=== PATIENT | female | born 1955 | race Caucasian/White ===

== ENCOUNTER → 2018-01-12 16:30 | Outpatient (CLI) | payer OTHER, SELFPAY ==
[2018-01-18 13:48] LABS: HPV APTIMA, High Risk Negative (Negative)
== END ==
PROVIDERS: Family Provider Family Medicine; PCP Family Medicine; Visit Provider Nurse Practitioner Women's Health
DX: Z12.4 Encounter for screening for malignant neoplasm of cervix (principal)
CPT/HCPCS: 88175; G0145

== ENCOUNTER → 2018-05-20 07:18 | Outpatient (CLI) | payer MEDICARE, OTHER, SELFPAY ==
--- NOTE | 2018-05-20 07:32 | BI_ITS ---
MAMMOGRAPHY - BILATERAL SCREENING REASON FOR EXAM: Female, 63 years old. Routine annual screening examination. PERTINENT HISTORY: Non-contributory. TECHNIQUE: Digital bilateral breast hyuen (3D mammographic acquisition) in the CC and MLO projections. 2-D mediolateral oblique (MLO) and craniocaudad (CC) views of both breasts were obtained. CAD: Full Field Digital Mammography with Computer Added Detection was performed. COMPARISON: Comparison is made with prior examination dated August 30, 2015. FINDINGS: Breast Composition: There are scattered areas of fibroglandular density. There are no dominant masses or suspicious calcifications. No other significant abnormalities are identified. There has been no significant change since the prior study. BI/SCREENING MAMM (CAD), BILAT IMPRESSION: Stable bilateral screening mammogram. Yearly follow-up mammogram recommended. (A) ASSESSMENT CATEGORY: BIRADS Category 1: Negative. A letter regarding these results will be sent to the patient by the facility within 30 days. Approximately 10% of breast cancers are not detected by mammography. A normal mammogram should not delay biopsy of a clinically suspicious abnormality. [id number] Electronically Signed: Clarke Sim MD at 12:44 EDT Tel [phone], Service support ,
== END ==
PROVIDERS: Family Provider Family Medicine; PCP Family Medicine; Visit Provider Nurse Practitioner Women's Health
DX: Z12.31 Encounter for screening mammogram for malignant neoplasm of breast (principal)
CPT/HCPCS: 77063; 77067

== ENCOUNTER → 2019-06-30 10:26 | Outpatient (CLI) | payer MEDICARE, OTHER, SELFPAY ==
[2018-01-12 09:01] VITALS: BMI 41.4
[2019-06-30 12:58] LABS: ALB/GLOB Ratio 0.8 RATIO (0.9-2.4); AST(SGOT) 14 U/L (15-37); Alanine Aminotransfer ALT/SGPT 24 U/L (13-56); Albumin, Serum 3.5 g/dL (3.2-5.0); Alkaline Phosphatase 115 U/L (45-117); Anion Gap 7 (5-15); BUN 12 mg/dL (7-18); Calcium,Total 8.9 mg/dL (8.5-10.1); Chloride 103 mmol/L (98-107); EST Glomerular Filtration Rate 59 mL/min (>60); Est Glom Filt Rate - Afr Amer 72 mL/min (>60); Globulin 4.4 g/dL (2.2-4.2); Glucose 127 mg/dL (74-106); Potassium 3.4 mmol/L (3.5-5.1); Protein, Total 7.9 g/dL (6.4-8.2); Sodium Level 141 mmol/L (136-145); Thyroid Stim Hormone (TSH) 2.02 uIU/mL (0.358-3.74)
== END ==
PROVIDERS: Family Provider Family Medicine; PCP Family Medicine; Referring Provider Family Medicine; Visit Provider Nurse Practitioner Family
DX: I10 Essential (primary) hypertension (principal)
CPT/HCPCS: 36415; 80053; 84443

== ENCOUNTER → 2019-07-07 10:11 | Outpatient (CLI) | payer MEDICARE, OTHER, SELFPAY ==
[2018-01-12 09:01] VITALS: BMI 41.4
--- NOTE | 2019-07-07 10:15 | BI_ITS ---
MAMMOGRAPHY - BILATERAL SCREENING REASON FOR EXAM: Female, 64 years old. Routine annual screening examination. PERTINENT HISTORY: Non-contributory. TECHNIQUE: Digital bilateral breast lexa (3D mammographic acquisition) in the CC and MLO projections. 2-D mediolateral oblique (MLO) and craniocaudad (CC) views of both breasts were obtained. CAD: Full Field Digital Mammography with Computer Added Detection was performed. COMPARISON: Comparison is made with prior study dated May 20, 2018. FINDINGS: Breast Composition: There are scattered areas of fibroglandular density. There are no dominant masses or suspicious calcifications. No other significant abnormalities are identified. There has been no significant change since the prior study. BI/SCREEN MAMM (CAD) W/LEXA BILAT IMPRESSION: Stable bilateral screening mammogram. Yearly follow-up mammogram recommended. (A) ASSESSMENT CATEGORY: BIRADS Category 1: Negative. A letter regarding these results will be sent to the patient by the facility within 30 days. Approximately 10% of breast cancers are not detected by mammography. A normal mammogram should not delay biopsy of a clinically suspicious abnormality. [id number] Electronically Signed: Clarke Sim, at 12:27 EDT , Service support ,
== END ==
PROVIDERS: Family Provider Family Medicine; PCP Family Medicine; Referring Provider Nurse Practitioner Women's Health; Visit Provider Nurse Practitioner Women's Health
DX: Z12.31 Encounter for screening mammogram for malignant neoplasm of breast (principal)
CPT/HCPCS: 77063; 77067

== ENCOUNTER 2021-01-31 12:00 | Outpatient (RCR) | payer MEDICARE, SELFPAY ==
[2018-01-12 09:01] VITALS: BMI 41.4
[2021-01-31] MEDS: COVID-19 VACC, MRNA(PFIZER)/PF 30 MCG/0.3 ML SYRINGE IM (11:40)
[2021-02-21] MEDS: COVID-19 VACC, MRNA(PFIZER)/PF 30 MCG/0.3 ML SYRINGE IM (11:23)
== END 2021-04-30 23:59 ==
LOC: IMMUN 12:00
PROVIDERS: PCP Family Medicine; Visit Provider Family Medicine
DX: Z23 Encounter for immunization (principal)
CPT/HCPCS: 0001A; 0002A; 91300

== ENCOUNTER → 2021-04-03 10:19 | Outpatient (CLI) | payer MEDICARE, SELFPAY ==
[2018-01-12 09:01] VITALS: BMI 41.4
--- NOTE | 2021-04-03 10:25 | BI_ITS ---
MAMMOGRAPHY - BILATERAL SCREENING REASON FOR EXAM: Female, 65 years old. Routine annual screening examination. PERTINENT HISTORY: Non-contributory. TECHNIQUE: Digital bilateral breast lexa (3D mammographic acquisition) in the CC and MLO projections. 2-D mediolateral oblique (MLO) and craniocaudad (CC) views of both breasts were obtained. CAD: Full Field Digital Mammography with Computer Added Detection was performed. COMPARISON: Comparison is made with prior study 07/07/2019 and 05/20/2018. FINDINGS: Breast Composition: There are scattered areas of fibroglandular density. There are no dominant masses or suspicious calcifications. No other significant abnormalities are identified. There has been no significant change since the prior study. BI/SCRN MAMM (CAD)W/LEXA BILAT IMPRESSION: Stable bilateral screening mammogram. Yearly follow-up mammogram recommended. (A) ASSESSMENT CATEGORY: BIRADS Category 1: Negative. A letter regarding these results will be sent to the patient by the facility within 30 days. Approximately 10% of breast cancers are not detected by mammography. A normal mammogram should not delay biopsy of a clinically suspicious abnormality. [id number] Electronically Signed: Clarke Sim MD at 12:19 EDT , Service support ,
--- NOTE | 2021-04-03 10:31 | BD_ITS ---
STUDY: DUAL ENERGY X-RAY ABSORPTIOMETRY / DXA REASON FOR EXAM: Female, 65 years old. Z780. Patient is postmenopausal. Loss of height. TECHNIQUE: Bone Mineral Density (BMD) measurements of lumbar spine and bilateral hips were obtained. COMPARISON: None. FINDINGS: Lumbar Spine (L1-L4): g/cm2 (1.256) / T-score (0.7) / Z-score (2.4) Findings are suggestive of normal bone density with a low fracture risk. Left Femur Total: g/cm2 (1.167) / T-score (1.3) / Z-score (2.6) Left Femoral Neck: g/cm2 (1.106) / T-score (0.5) / Z-score (2.1) Right Femur Total: g/cm2 (1.166) / T-score (1.3) / Z-score (2.6) Right Femoral Neck: g/cm2 (1.087) / T-score (0.4) / Z-score (1.9) BD/Dexa Bone Density Study IMPRESSION: The patient is considered normal as outlined below according to World Ambrose Organization (WHO) criteria with a low fracture risk. Reference Information: The T-score is the number of standard deviations above or below the standard which is normal for young adults at their peak bone mineral density. The World Health Organization (WHO) interprets the T-scores as follows: Above -1 Normal bone density Between -1 and -2.5 Osteopenia Equal to / or below -2.5 Osteoporosis As a practical clinical guideline, osteopenia may be graded as follows: Mild -1 through -1.5 Moderate -1.6 through -2.0 Severe -2.1 through -2.4 The Z-score is the number of standard deviations above or below age-matched controls. A Z-score of less than -1.5 would be considered abnormal. References: 1. NIH Osteoporosis and Related Bone Diseases www osteo.org 2. International Society for Clinical Densitometry www iscd.org 3. National Osteoporosis Foundation www nof.org Electronically Signed: Clarke Sim MD at 9:29 EDT , Service support ,
== END ==
PROVIDERS: PCP Family Medicine; Referring Provider Nurse Practitioner Adult Health; Visit Provider Nurse Practitioner Adult Health
DX: Z12.31 Encounter for screening mammogram for malignant neoplasm of breast (principal); Z78.0 Asymptomatic menopausal state
CPT/HCPCS: 77063; 77067; 77080

== ENCOUNTER → 2021-08-29 10:31 | Outpatient (CLI) | payer MEDICARE, SELFPAY ==
--- NOTE | 2021-08-29 | EMB_PTH ---
PATIENT: JERRI VANEGAS LOC: [facility] U#:[id number] AGE/SX: 70/F ROOM: RE08/29/[address]: MIGUEL Araiza : 1955 BED: DIS: SPEC #: [id number] RECD: 08/29/21 11:01 STATUS: WILLA MARY #: [id number] ISSAC: 08/29/21 00:[address]: Emilia Valdes NP DEPT: SURGICAL PATHOLOGY RECD BY: Loraine Florez ENTERED: 08/29/21 13:21 SP TYPE: ENDOM BX/C CEDRIC DR: Dr. Kirit Mcintosh MD Tissues: Endometrium, NOS Procedures: Surgery Specimen Level IV HEADER OPERATION: Endometrial biopsy PRE-OP DIAGNOSIS: PMB TISSUE SUBMITTED: Endometrial biopsy MICROSCOPIC DIAGNOSIS Endometrial biopsy: Simple endometrial hyperplasia without atypia. SJ:jairo 08/30/2021 COMMENT Case has been reviewed in consultation with Dr. Leo who concurs with the above diagnosis. IDC:AM MICROSCOPIC DESCRIPTION Slides are reviewed. GROSS DESCRIPTION Received is one container labeled with the patient's name and not further designated. The specimen consists of multiple irregular fragments of benjamin soft mixed with mucoid tissue that in aggregate measure 3 x 2.5 x 0.2 cm. The specimen is totally submitted in one cassette. / SJ:jairo 08/29/21 TC:5 CPT: 33227
[2021-09-04 15:55] LABS: HPV Reflexed? NOT INDICATED
== END ==
PROVIDERS: PCP Family Medicine; Referring Provider Nurse Practitioner Women's Health; Visit Provider Nurse Practitioner Women's Health
DX: Z12.4 Encounter for screening for malignant neoplasm of cervix (principal); N95.0 Postmenopausal bleeding
CPT/HCPCS: 88175; 88305; G0145

== ENCOUNTER → 2021-09-05 07:46 | Outpatient (CLI) | payer MEDICARE, SELFPAY ==
--- NOTE | 2021-09-05 07:49 | US_ITS ---
STUDY: ULTRASOUND OF THE FEMALE PELVIS - COMPLETE REASON FOR EXAM: Female, 66 years old. Abnormal uterine bleeding LMP: Patient is postmenopausal. TECHNIQUE: Transabdominal and Transvaginal TECHNICAL QUALITY: Adequate. COMPARISON: None. FINDINGS: The uterus is anteverted and is in a midline position. The uterus is enlarged and measures 11.1 cm x 6.5 cm x 4.7 cm. There is a Nabothian cyst of the cervix. The endometrium is thickened and measures 11.5 mm in thickness, and is hyperechoic. There is no demonstrated endometrial mass. There is a 2.3 cm x 2.7 cm x 1.5 cm uterine fibroid. I.U.D. - The patient does not have an I.U.D. The right ovary is non-visualized. The left ovary is visualized. The left ovary measures 2 cm x 1.5 cm x 1.4 cm. There is no left ovarian cyst or ovarian mass. There is no visualized left adnexal mass or complex lesion. There is normal arterial and normal venous vascularity. There is no fluid in the cul-de-sac. The pre void volume of the bladder was 212 ml. US/Pelvic (Non ) IMPRESSION: Enlarged fibroid uterus. Thickened endometrium. Electronically Signed: Clarke Sim MD at 9:12 EDT , Service support ,
--- NOTE | 2021-09-05 07:49 | US_ITS ---
STUDY: ULTRASOUND OF THE FEMALE PELVIS - COMPLETE REASON FOR EXAM: Female, 66 years old. Abnormal uterine bleeding LMP: Patient is postmenopausal. TECHNIQUE: Transabdominal and Transvaginal TECHNICAL QUALITY: Adequate. COMPARISON: None. FINDINGS: The uterus is anteverted and is in a midline position. The uterus is enlarged and measures 11.1 cm x 6.5 cm x 4.7 cm. There is a Nabothian cyst of the cervix. The endometrium is thickened and measures 11.5 mm in thickness, and is hyperechoic. There is no demonstrated endometrial mass. There is a 2.3 cm x 2.7 cm x 1.5 cm uterine fibroid. I.U.D. - The patient does not have an I.U.D. The right ovary is non-visualized. The left ovary is visualized. The left ovary measures 2 cm x 1.5 cm x 1.4 cm. There is no left ovarian cyst or ovarian mass. There is no visualized left adnexal mass or complex lesion. There is normal arterial and normal venous vascularity. There is no fluid in the cul-de-sac. The pre void volume of the bladder was 212 ml. US/Transvaginal Non- IMPRESSION: Enlarged fibroid uterus. Thickened endometrium. Electronically Signed: Clarke Sim MD at 9:12 EDT , Service support ,
== END ==
PROVIDERS: PCP Family Medicine; Referring Provider Nurse Practitioner Women's Health; Visit Provider Nurse Practitioner Women's Health
DX: N95.0 Postmenopausal bleeding (principal)
CPT/HCPCS: 76830; 76856

== ENCOUNTER 2021-11-26 05:51 | Day surgery (SDC) | payer MEDICARE, SELFPAY ==
--- NOTE | 2021-11-21 10:02 | EKG12_ITS ---
Test Reason : PREOP Blood Pressure : / mmHG Vent. Rate : 075 BPM Atrial Rate : 075 BPM P-R Int : 126 ms QRS Dur : 078 ms QT Int : 384 ms P-R-T Axes : 033 000 026 degrees QTc Int : 428 ms Normal sinus rhythm Nonspecific ST abnormality Abnormal ECG Confirmed by LISETH CRESPO, VERONICA ([id number]), web content editor HERRERA PLEITEZ ([id number]) on 11/25/2021 2:19:11 PM Referred By: Danay Padron Confirmed By:VERONICA CHILDERS MD
[2021-11-21 10:45] LABS: Absolute Lymphocyte Count 1.29 X10^3/uL (0.83-4.51); Absolute Neutrophil Count 4.8 X10^3/uL (2.0-7.7); Basophil# 0.02 X10^3/uL; Basophil% 0.3 % (0-1); Eosinophil# 0.14 X10^3/uL; Eosinophils% 2.1 % (0-5); Hematocrit 41.1 % (37-47); Hemoglobin 12.7 g/dL (12.0-15.0); Lymphocyte # 1.29 X10^3/ul (0.83-4.51); Lymphocyte % 19.2 % (19-41); Mean Corp Hgb Conc 30.9 g/dL (32-36); Mean Corpuscular Hgb 25.8 pg (27.0-32.0); Mean Corpuscular Volume 83.5 fL (81-99); Mean Platelet Vol. 9.5 fl (6.2-12.0); Monocyte# 0.47 X10^3/uL; NRBC Flagged by Analyzer 0 % (0-5); Neutrophil # 4.78 X10^3/uL (2.7-7.7); Neutrophil % 71.1 % (47-70); Platelet Count 287 K/mm3 (150-450); RBC Distribution Width CV 15.2 % (11.6-14.6); RBC Distribution Width SD 46.2 fl (35.1-43.9); Red Blood Count 4.92 M/mm3 (4.2-5.4); White Blood Count 6.7 K/mm3 (4.4-11.0)
[2021-11-21 11:11] LABS: ALB/GLOB Ratio 0.7 RATIO (0.9-2.4); AST(SGOT) 20 U/L (15-37); Alanine Aminotransfer ALT/SGPT 26 U/L (13-56); Albumin, Serum 3.2 g/dL (3.2-5.0); Alkaline Phosphatase 116 U/L (45-117); Anion Gap 4 (5-15); BUN 14 mg/dL (7-18); BUN/Creat Ratio 15.5 RATIO (10-20); Calcium,Total 9.2 mg/dL (8.5-10.1); Chloride 107 mmol/L (98-107); Creatinine, Serum 0.91 mg/dL (0.55-1.02); EST Glomerular Filtration Rate 66 mL/min (>60); Est Glom Filt Rate - Afr Amer 79 mL/min (>60); Globulin 4.4 g/dL (2.2-4.2); Glucose 110 mg/dL (74-106); Potassium 4.2 mmol/L (3.5-5.1); Protein, Total 7.6 g/dL (6.4-8.2); Sodium Level 141 mmol/L (136-145)
[2021-11-26] VITALS (7 sets, daily range): BP systolic 129–159; BP diastolic 74–88; PULSE 62–87; RESP 16–20; TEMP 36.3–37.1; O2SAT 95–98; BMI 40.8
[2021-11-26] MEDS: Lactated Ringers 1,000 ML 15 ML IV (06:42)
--- NOTE | 2021-11-26 07:27 | PCM.HP.BLA ---
History and Physical Date of Admission: 11/26/21 Intake Visit Reasons: 2 wk D&C Is patient in pain?: No Allergies No Known Allergies Allergy (Verified 11/18/21 14:02) Medications multivitamin,pk-vmbe-chxuxytb 1 tab PO QDAY 01/12/18 [History Confirmed 11/18/21] quinapril 20 mg tablet 10 mg PO QDAY tab 08/29/21 [History Confirmed 11/18/21] Is last menstrual period known: No Post menopausal: Yes Patient : No : No PFSH Medical History Hypertension Surgical History bilateral carpal tunnel surgery gallbladder surgery History of bilateral knee replacement History of tonsillectomy Social History current occupational status: retired current occupation: [employer] Smoking Status: Never smoker alcohol intake: never substance use type: does not use caffeine: Yes frequency: daily duration: 30-45 minutes/day seatbelt use: always do you feel safe at home: Yes additional social history: [facility] 2 wk D&C Details: JERRI VANEGAS is a 66 year old who presents for preop apopintment for d and c hysteroscopy Female Reproductive History Menopausal Symptoms: No night sweats Pregancy History 1 Elective abortions Hx Para 1 Spontaneous abortions Hx # Term Pregnancies Ectopic pregnancies Hx # Pregnancies Multiple births # of living children Past Pregnancies Del. Date Name GA/Weeks Outcome Route Bth Weight Gen Labor Lgth Anesthesia Del [facility] Provider FOB Unknown 1980 Sonya Amaya Constitutional: Denies fatigue, night sweats, weight gain or weight loss ENT ENT: Reports system reviewed and no additional complaints, except as documented Cardio Card: Denies chest pain Resp Resp: Denies cough or dyspnea GI GI: Reports as per HPI; Denies abdominal pain, constipation, nausea or vomiting : Denies nipple discharge, urinary frequency, urinary incontinence, urinary hesitancy, urinary urgency, vaginal discharge, vaginal dryness, vaginal odor or vaginal pruritus Musc Musc: Denies arthralgias, back pain or muscle weakness Skin Skin/Breast: Denies change in hair, dry skin or nipple discharge Neuro Neuro: Reports system reviewed and no additional complaints, except as documented Psych Psych: Reports system reviewed and no additional complaints, except as documented Endo Endo: Denies cold intolerance, excessive sweating, heat intolerance or polydipsia Constantine/Lymph Hematologic/Lymphatic: Denies easy bleeding, Denies easy bruising and Denies lymphadenopathy Exam Const General: cooperative, healthy appearing, comfortable, no acute distress and well developed Orientation: alert [facility] Head: normal to inspection and normocephalic Ears: hearing grossly normal bilaterally and external ears normal Nose: external nose normal and nares normal Face and sinus: normal facial exam Neck Neck: normal visual inspection and no lymphadenopathy Thyroid: thyroid normal Chest Chest palpation & inspection: normal inspection of the chest Resp Effort & Inspection: normal respiratory effort Auscultation: clear to auscultation bilaterally Cardio Rate: regular rate Rhythm: regular rhythm Heart Sounds: S1 normal and S2 normal GI Inspection: normal to inspection and non-distended Palpation: soft and no hepatosplenomegaly Musc Other: gross motor intact no deficits, full bilateral strength Skin General: no rashes or lesions noted Neuro General: patient alert, patient awake, moves all extremities and no focal motor deficits Motor: muscle tone normal throughout Extrem General: normal to inspection and no pedal edema Psych Appearance: grossly normal Mental Status: mental status grossly normal Affect: normal affect Speech and Movement: speech and movement normal Coding Level of Care Code No Charge Diagnoses Simple endometrial hyperplasia without atypia N85.01 Postmenopausal bleeding N95.0 Assessment and Plan Assessment and Plan (1) Simple endometrial hyperplasia without atypia: Status: Acute Comment: Plan hysteroscopy D&C with symphion with SM (2) Postmenopausal bleeding: Status: Acute Comment: US small fibroid, lining 11mm Plan - Dr. Danay Padron MD: After discussing the patient's diagnosis and treatment plan options, patient wishes to proceed with surgical management. I have discussed with the patient the risks, benefits, and alternatives of the procedure which include but are not limited to risks of anesthesia, bleeding, infection, possible damage to bowel, bladder, or surrounding vasculature which could lead to additional surgery to evaluate any complications. Patient agrees to procedure and wishes to proceed. ACOG/uptodate references given for additional information regarding procedure. UPDATE- I have seen the patient and performed any clinically relevant updates to the history and physical exam. Danay Padron MD
--- NOTE | 2021-11-26 07:30 | UTC_PTH ---
PATIENT: JERRI VANEGAS LOC: [facility] U#:[id number] AGE/SX: 66/F ROOM: RE11/26/[address]: Dr. Danay Padron MD : 1955 BED: DIS: 11/26/2021 SPEC #: [id number] RECD: 11/26/21 13:45 STATUS: WILLA HERNANDEZ #: [id number] ISSAC: 11/26/21 07:[address]: Danay Padron DEPT: SURGICAL PATHOLOGY RECD BY: Loraine Florez ENTERED: 11/26/21 13:55 SP TYPE: UT CUR OTHR DR: Dr. Kirit Mcintosh MD Tissues: Uterine cervix, NOS Procedures: Surgery Specimen Level IV HEADER OPERATION: Hysteroscopy, D & C Symphion, polypectomy, IUD insertion PRE-OP DIAGNOSIS: Simple endometrial hyperplasia, postmenopausal bleeding TISSUE SUBMITTED: Uterine washings and polyp MICROSCOPIC DIAGNOSIS Uterine washings and polyp: Polypoid fragments of simple and focal complex hyperplasia without atypia. AM:jairo 11/27/2021 COMMENT Reference is made to the patient's previous endometrial biopsy ([id number]) in which simple hyperplasia without atypia was identified. MICROSCOPIC DESCRIPTION Slides are reviewed. GROSS DESCRIPTION Received in fixative is one container labeled with the patient's name and designated uterine washings and polyp. The specimen consists of multiple irregular fragments of pink-benjamin soft tissue that in aggregate measure 7 x 5 x 0.2 cm. The specimen is submitted in its entirety in three cassettes. / AM:jairo 11/26/21 TC:5 CPT: 91938
[2021-11-26] MEDS: Levonorgestrel IUD (Liletta) 1 EACH INTRA-UTER (07:45)
--- NOTE | 2021-11-26 07:58 | PCM.OPRPT ---
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 A weighted speculum was placed in the vagina and the anterior lip of the cervix was grasped with a single-tooth tenaculum. A paracervical block was placed with 1% lidocaine. Cervix was progressively dilated to allow passage of a 5 mm hysteroscope. The lining was fully visualized and noted to have a thickened polypoid lining with at least 2 endometrial polyps present. Uterine sounded to 10 cm. Using the symphion device, the polyps were progressively removed without complications. Direct visual curettage was performed using the device , and all specimens were sent to pathology. Liletta IUD was placed without complication and strings trimmed to 3 cm. All instruments were removed from the vagina and excellent hemostasis was noted. Patient was awoken and taken to recovery in stable condition. Grafts/Implants Used: none Complications none Admit VTE Documentation VTE Present on Admission: No VTE Mechan Device Prophylaxis: SCD's Multi Select Codes Urinary/Genital Urinary/Genital CPT Codes: 60985 Insert IUD and 00663 Hysteroscopy,EMC, Polypectomy
--- NOTE | 2021-11-26 08:02 | PCM.DC ---
Discharge Instructions Diet Discharge Diet: No restrictions Activity Discharge Activity: Return to Normal Activity, May Shower and May Take a Tub Bath (after 1 week) May resume sexual activity in: 1-2 weeks Weight Bearing Status: Weight bearing as tolerated Lifting Restrictions: none Dressing / Incision Call your doctor if you observe: Fever of 101 or Higher, Using more than 1 pad per hour, Shortness of breath and Uncontrolled pain Follow Up Care Please Follow Up With: Danay Padron MD When: Call [phone] to schedule appointment. Test Results: Test results from this visit will be discussed in further detail at your follow-up appointment, if applicable. Discharge Plan Admission Primary Reason for Your Visit: d and c hysteroscopy iud insertion Attending Provider: Danay Padron Primary Care Provider: Kirit Mcintosh Discharge Orders/Prescriptions Prescriptions: No Action multivitamin,ph-ptcd-bzebyhui tablet tablet 1 tab PO QDAY RF: 0 quinapril 20 mg tablet 10 mg PO QDAY RF: 0 Referrals / Follow Up: Kirit Mcintosh MD [Primary Care Provider] - Disposition Disposition (needs filled in before D/C Order can be placed): Home, Self Care
[2021-11-26] MEDS: Ketorolac 15 MG/ML Vial IV (08:34)
== END 2021-11-26 23:59 | disposition home or self-care (01) ==
LOC: SDC 05:52 → AC 05:53
PROVIDERS: PCP Family Medicine; Referring Provider Obstetrics & Gynecology; Visit Provider Obstetrics & Gynecology
PROC: 0UB98ZZ Excision of Uterus, Via Natural or Artificial Opening Endoscopic (ICD-10-PCS; CPT 58558; principal; 2021-11-26 07:15)
DX: N85.01 Benign endometrial hyperplasia (principal); I10 Essential (primary) hypertension; N95.0 Postmenopausal bleeding; Z79.899 Other long term (current) drug therapy; M19.90 Unspecified osteoarthritis, unspecified site; Z30.430 Encounter for insertion of intrauterine contraceptive device
CPT/HCPCS: 58558; 58300; 00940; 36415; 80053; 85025; 86850; 86900; 86901; 88305; 93005; J7120

== ENCOUNTER 2022-01-14 08:39 | Outpatient (CLI) | payer MEDICARE, SELFPAY ==
[2022-01-14 10:08] LABS: Anion Gap 6 (5-15); BUN 11 mg/dL (7-18); BUN/Creat Ratio 11.8 RATIO (10-20); Calcium,Total 8.8 mg/dL (8.5-10.1); Chloride 105 mmol/L (98-107); Cholesterol 144 mg/dL (200); Creatinine, Serum 0.94 mg/dL (0.55-1.02); EST Glomerular Filtration Rate 63 mL/min (>60); Est Glom Filt Rate - Afr Amer 76 mL/min (>60); Glucose 110 mg/dL (74-106); High Density Lipoprotein 39 mg/dL; Sodium Level 138 mmol/L (136-145); Triglycerides 156 mg/dL; Very Low Density Lipoprotein 31 mg/dL (5-40)
== END 2022-01-14 23:59 | disposition home or self-care (01) ==
LOC: MFPLAB 08:41
PROVIDERS: PCP Family Medicine; Referring Provider Family Medicine; Visit Provider Nurse Practitioner Family
DX: Z13.220 Encounter for screening for lipoid disorders (principal); Z13.1 Encounter for screening for diabetes mellitus
CPT/HCPCS: 36415; 80048; 80061

== ENCOUNTER → 2022-03-27 | Outpatient (CLI) | payer MEDICARE, SELFPAY ==
[2022-03-27 11:12] LABS: Hemoglobin A1c 5.9 % (3.8-5.6)
== END | disposition home or self-care (01) ==
PROVIDERS: PCP Family Medicine; Referring Provider Family Medicine; Visit Provider Nurse Practitioner Family
DX: R73.01 Impaired fasting glucose (principal)
CPT/HCPCS: 36415; 83036

== ENCOUNTER → 2022-05-29 | Outpatient (CLI) | payer MEDICARE, SELFPAY ==
--- NOTE | 2022-05-29 11:40 | EMB_PTH ---
PATIENT: JERRI VANEGAS LOC: [facility] U#:[id number] AGE/SX: 67/F ROOM: RE05/29/[address]: Dr. Danay Padron MD : 1955 BED: DIS: 05/29/2022 SPEC #: [id number] RECD: 05/29/22 14:55 STATUS: WILLA REDemond #: [id number] ISSAC: 05/29/22 11:[address]: Danay Padron DEPT: SURGICAL PATHOLOGY RECD BY: Loraine Florez ENTERED: 05/30/22 08:36 SP TYPE: ENDOM BX/C OTHR DR: Dr. Kirit Mcintosh MD Tissues: Endometrium, NOS Procedures: Surgery Specimen Level IV HEADER OPERATION: Endometrial biopsy PRE-OP DIAGNOSIS: Abnormal uterine bleeding TISSUE SUBMITTED: Endometrial biopsy MICROSCOPIC DIAGNOSIS Endometrial biopsy: Fragments of benign endometrial tissue with extensive exogenous hormone effects and mucous. See comment. HALLIE:jairo 06/02/2022 COMMENT Please make reference to previous specimens ([id number]), uterine washing and polyp with diagnosis of ?polypoid fragments of simple and focal hyperplasia without atypia and ([id number]), endometrial biopsy with diagnosis of? simple endometrial hyperplasia without atypia?. Clinical correlation and appropriate follow up are necessary. MICROSCOPIC DESCRIPTION Slides are reviewed. GROSS DESCRIPTION Received is one container labeled with the patient's name and not further designated. The specimen consists of multiple fragments of benjamin, hemorrhagic mucoid tissue measuring in aggregate 2 x 1.5 x 0.1 cm. The entire specimen is submitted in one cassette. / SJ:jairo 05/30/2022 TC:5 CPT: 92885
== END | disposition home or self-care (01) ==
LOC: LABSPEC 15:05
PROVIDERS: PCP Family Medicine; Visit Provider Obstetrics & Gynecology
DX: N93.9 Abnormal uterine and vaginal bleeding, unspecified (principal)
CPT/HCPCS: 88305

== ENCOUNTER → 2022-06-12 | Outpatient (CLI) | payer MEDICARE, SELFPAY ==
--- NOTE | 2022-06-12 09:10 | BI_ITS ---
MAMMOGRAPHY - BILATERAL SCREENING REASON FOR EXAM: Female, 67 years old. Routine annual screening examination. PERTINENT HISTORY: Non-contributory. TECHNIQUE: Digital bilateral breast lexa (3D mammographic acquisition) in the CC and MLO projections. 2-D mediolateral oblique (MLO) and craniocaudad (CC) views of both breasts were obtained. CAD: Full Field Digital Mammography with Computer Added Detection was performed. COMPARISON: Comparison is made with prior study dated 04/03/2021 and 07/07/2019. FINDINGS: Breast Composition: There are scattered areas of fibroglandular density. There are no dominant masses or suspicious calcifications. No other significant abnormalities are identified. There has been no significant change since the prior study. BI/SCRN MAMM (CAD)W/LEXA BILAT IMPRESSION: Stable bilateral screening mammogram. Yearly follow-up mammogram recommended. (A) ASSESSMENT CATEGORY: BIRADS Category 1: Negative. A letter regarding these results will be sent to the patient by the facility within 30 days. Approximately 10% of breast cancers are not detected by mammography. A normal mammogram should not delay biopsy of a clinically suspicious abnormality. [id number] Electronically Signed: Clarke Sim MD at 10:02 EDT ,
== END | disposition home or self-care (01) ==
LOC: OPBI 09:08
PROVIDERS: PCP Family Medicine; Visit Provider Nurse Practitioner Family
DX: Z12.31 Encounter for screening mammogram for malignant neoplasm of breast (principal)
CPT/HCPCS: 77063; 77067

== ENCOUNTER → 2022-06-18 | Outpatient (CLI) | payer MEDICARE, SELFPAY | END | disposition home or self-care (01) | LOC: LABSPEC 13:59 | PROVIDERS: PCP Family Medicine; Referring Provider Family Medicine; Visit Provider Family Medicine | DX: R10.9 Unspecified abdominal pain (principal) | CPT/HCPCS: 87086; 87088 ==

== ENCOUNTER → 2022-07-14 | Outpatient (CLI) | payer MEDICARE, SELFPAY ==
[2022-07-14 12:32] LABS: Absolute Lymphocyte Count 1.58 X10^3/uL (0.83-4.51); Absolute Neutrophil Count 4.8 X10^3/uL (2.0-7.7); Basophil# 0.03 X10^3/uL; Basophil% 0.4 % (0-1); Eosinophil# 0.11 X10^3/uL; Eosinophils% 1.6 % (0-5); Hematocrit 41.8 % (37-47); Hemoglobin 13.1 g/dL (12.0-15.0); Lymphocyte # 1.58 X10^3/ul (0.83-4.51); Lymphocyte % 22.4 % (19-41); Mean Corp Hgb Conc 31.3 g/dL (32-36); Mean Corpuscular Hgb 25.2 pg (27.0-32.0); Mean Corpuscular Volume 80.4 fL (81-99); Mean Platelet Vol. 10.2 fl (6.2-12.0); Monocyte# 0.47 X10^3/uL; Monocyte% 6.7 % (0-10); NRBC Flagged by Analyzer 0 % (0-5); Neutrophil # 4.83 X10^3/uL (2.7-7.7); Neutrophil % 68.6 % (47-70); Platelet Count 301 K/mm3 (150-450); RBC Distribution Width CV 16.2 % (11.6-14.6); RBC Distribution Width SD 46.8 fl (35.1-43.9)
[2022-07-14 12:55] LABS: Hemoglobin A1c 6.1 % (3.8-5.6)
[2022-07-14 13:04] LABS: ALB/GLOB Ratio 0.8 RATIO (0.9-2.4); AST(SGOT) 16 U/L (15-37); Alanine Aminotransfer ALT/SGPT 19 U/L (13-56); Albumin, Serum 3.6 g/dL (3.2-5.0); Alkaline Phosphatase 122 U/L (45-117); Anion Gap 5 (5-15); BUN 16 mg/dL (7-18); BUN/Creat Ratio 11.5 RATIO (10-20); Calcium,Total 9.2 mg/dL (8.5-10.1); Chloride 105 mmol/L (98-107); Creatinine, Serum 1.39 mg/dL (0.55-1.02); EST Glomerular Filtration Rate 40 mL/min (>60); Est Glom Filt Rate - Afr Amer 48 mL/min (>60); Globulin 4.3 g/dL (2.2-4.2); Glucose 90 mg/dL (74-106); Potassium 4.1 mmol/L (3.5-5.1); Protein, Total 7.9 g/dL (6.4-8.2); Sodium Level 138 mmol/L (136-145); Thyroid Stim Hormone (TSH) 2.24 uIU/mL (0.358-3.74)
[2022-07-14 13:16] LABS: Microalbumin,Random Urine 10.1 mg/L (NO RANGE EST.); Microalbumin:Creatinine Ratio 24.2 mg/g CRE (<30 mg/g CRE)
[2022-07-14 13:42] LABS: Vitamin D,25 Hydroxy 24.1 ng/mL
== END | disposition home or self-care (01) ==
LOC: MFPLAB 10:32
PROVIDERS: PCP Family Medicine; Visit Provider Family Medicine
DX: N18.2 Chronic kidney disease, stage 2 (mild) (principal); E66.01 Morbid (severe) obesity due to excess calories; I12.9 Hypertensive chronic kidney disease with stage 1 through stage 4 chronic kidney disease, or unspecified chronic kidney disease; R73.01 Impaired fasting glucose; Z68.37 Body mass index [BMI] 37.0-37.9, adult
CPT/HCPCS: 36415; 80053; 82043; 82306; 82570; 83036; 84443; 85025

== ENCOUNTER → 2022-11-27 | Outpatient (CLI) | payer MEDICARE, SELFPAY ==
--- NOTE | 2022-11-27 | EMB_PTH ---
PATIENT: JERRI VANEGAS [facility] U#:[id number] AGE/SX: 67/F ROOM: RE11/27/[address]: Dr. Danay Padron MD : 1955 BED: DIS: 11/27/2022 SPEC #: [id number] RECD: 11/28/22 10:38 STATUS: WILLA REDemond #: [id number] ISSAC: 11/27/22 00:[address]: Danay Padron DEPT: SURGICAL PATHOLOGY RECD BY: Justice Mariscal ENTERED: 11/28/22 10:38 SP TYPE: ENDOM BX/C OTHR DR: Dr. Kirit Mcintosh MD Tissues: Endometrium, NOS Procedures: Surgery Specimen Level IV HEADER OPERATION: Endometrial biopsy PRE-OP DIAGNOSIS: Not noted TISSUE SUBMITTED: Endometrial biopsy MICROSCOPIC DIAGNOSIS Endometrial biopsy: Scant fragment of benign endometrial tissue with exogenous hormone effect. Negative for hyperplasia. See comment. SJ:jairo 12/01/2022 COMMENT The specimen predominantly consists of mucoid tissue. Clinical correlation and appropriate follow up are necessary. Please make reference to previous specimens ([id number]) endometrial biopsy with diagnosis of ?simple endometrial hyperplasia without atypia? and (S2238) uterine washings and polyp with diagnosis of ?polypoid fragments of simple and complex hyperplasia without atypia? and ([id number]) endometrial biopsy with diagnosis of ?fragments of benign endometrial tissue with extensive exogenous hormone effect and mucous.? MICROSCOPIC DESCRIPTION Slides are reviewed. GROSS DESCRIPTION Received is one container labeled with the patient's name and not further designated. The specimen consists of multiple irregular fragments of benjamin mucoid tissue that in aggregate measure 2 x 2 x 0.3 cm. The specimen is totally submitted in one cassette. / HALLIE:jairo 11/28/2022 TC:5 CPT: 68002
== END | disposition home or self-care (01) ==
LOC: LABSPEC 15:03
PROVIDERS: PCP Family Medicine; Referring Provider Obstetrics & Gynecology; Visit Provider Obstetrics & Gynecology
DX: N85.00 Endometrial hyperplasia, unspecified (principal)
CPT/HCPCS: 88305

== ENCOUNTER → 2023-04-03 | Outpatient (CLI) | payer MEDICARE, SELFPAY ==
[2023-04-03 10:09] LABS: Absolute Lymphocyte Count 1.56 X10^3/uL (0.83-4.51); Absolute Neutrophil Count 3.7 X10^3/uL (2.0-7.7); Basophil# 0.02 X10^3/uL; Basophil% 0.3 % (0-1); Eosinophil# 0.14 X10^3/uL; Eosinophils% 2.4 % (0-5); Hematocrit 41.8 % (37-47); Hemoglobin 12.8 g/dL (12.0-15.0); Lymphocyte # 1.56 X10^3/ul (0.83-4.51); Lymphocyte % 26.8 % (19-41); Mean Corp Hgb Conc 30.6 g/dL (32-36); Mean Corpuscular Hgb 25.8 pg (27.0-32.0); Mean Corpuscular Volume 84.1 fL (81-99); Mean Platelet Vol. 9.8 fl (6.2-12.0); Monocyte# 0.37 X10^3/uL; Monocyte% 6.4 % (0-10); NRBC Flagged by Analyzer 0 % (0-5); Neutrophil # 3.71 X10^3/uL (2.7-7.7); Neutrophil % 63.8 % (47-70); Platelet Count 294 K/mm3 (150-450); RBC Distribution Width CV 15.6 % (11.6-14.6); RBC Distribution Width SD 47.6 fl (35.1-43.9); Red Blood Count 4.97 M/mm3 (4.2-5.4); White Blood Count 5.8 K/mm3 (4.4-11.0)
[2023-04-03 10:26] LABS: ALB/GLOB Ratio 0.8 RATIO (0.9-2.4); AST(SGOT) 17 U/L (15-37); Alanine Aminotransfer ALT/SGPT 22 U/L (13-56); Albumin, Serum 3.3 g/dL (3.2-5.0); Alkaline Phosphatase 111 U/L (45-117); Anion Gap 4 (5-15); BUN 16 mg/dL (7-18); BUN/Creat Ratio 17.3 RATIO (10-20); Chloride 109 mmol/L (98-107); Cholesterol 168 mg/dL (200); Creatinine, Serum 0.93 mg/dL (0.55-1.02); EST Glomerular Filtration Rate 64 mL/min (>60); Est Glom Filt Rate - Afr Amer 77 mL/min (>60); Glucose 95 mg/dL (74-106); High Density Lipoprotein 53 mg/dL; Potassium 3.9 mmol/L (3.5-5.1); Protein, Total 7.3 g/dL (6.4-8.2); Sodium Level 140 mmol/L (136-145); Triglycerides 130 mg/dL; Very Low Density Lipoprotein 26 mg/dL (5-40)
[2023-04-03 10:39] LABS: Vitamin D,25 Hydroxy 39.4 ng/mL
[2023-04-03 10:43] LABS: Hemoglobin A1c 6.1 % (3.8-5.6)
[2023-04-03 10:46] LABS: Microalbumin,Random Urine 34.8 mg/L (NO RANGE EST.); Microalbumin:Creatinine Ratio 27.6 mg/g CRE (<30 mg/g CRE)
== END | disposition home or self-care (01) ==
LOC: MFPLAB 08:44
PROVIDERS: PCP Family Medicine; Visit Provider Family Medicine
DX: Z00.00 Encounter for general adult medical examination without abnormal findings (principal); E66.01 Morbid (severe) obesity due to excess calories; I12.9 Hypertensive chronic kidney disease with stage 1 through stage 4 chronic kidney disease, or unspecified chronic kidney disease; R73.01 Impaired fasting glucose; N18.2 Chronic kidney disease, stage 2 (mild); Z68.37 Body mass index [BMI] 37.0-37.9, adult
CPT/HCPCS: 36415; 80053; 80061; 82043; 82306; 82570; 83036; 85025

== ENCOUNTER → 2023-07-20 | Outpatient (CLI) | payer MEDICARE, SELFPAY ==
--- NOTE | 2023-07-20 08:26 | BI_ITS ---
MAMMOGRAPHY - BILATERAL SCREENING REASON FOR EXAM: Female, 68 years old. Routine annual screening examination. PERTINENT HISTORY: Non-contributory. TECHNIQUE: Digital bilateral breast lexa (3D mammographic acquisition) in the CC and MLO projections. 2-D mediolateral oblique (MLO) and craniocaudad (CC) views of both breasts were obtained. CAD: Full Field Digital Mammography with Computer Added Detection was performed. COMPARISON: Comparison is made with prior study dated June 12, 2022 and April 03, 2021. FINDINGS: Breast Composition: There are scattered areas of fibroglandular density. There are no dominant masses or suspicious calcifications. No other significant abnormalities are identified. There has been no significant change since the prior study. BI/SCRN MAMM (CAD)W/LEXA BILAT IMPRESSION: Stable bilateral screening mammogram. Yearly follow-up mammogram recommended. (A) ASSESSMENT CATEGORY: BIRADS Category 1: Negative. A letter regarding these results will be sent to the patient by the facility within 30 days. Approximately 10% of breast cancers are not detected by mammography. A normal mammogram should not delay biopsy of a clinically suspicious abnormality. [id number] Electronically Signed: Clarke Sim MD at 12:49 EDT ,
== END | disposition home or self-care (01) ==
LOC: OPBI 08:25
PROVIDERS: PCP Family Medicine; Referring Provider Obstetrics & Gynecology; Visit Provider Obstetrics & Gynecology
DX: Z12.31 Encounter for screening mammogram for malignant neoplasm of breast (principal)
CPT/HCPCS: 77063; 77067

== ENCOUNTER 2023-09-23 08:15 | Outpatient (CLI) | payer MEDICARE, SELFPAY ==
[2023-09-23 10:40] LABS: Absolute Lymphocyte Count 1.29 X10^3/uL (0.83-4.51); Absolute Neutrophil Count 4.2 X10^3/uL (2.0-7.7); Basophil# 0.04 X10^3/uL; Basophil% 0.7 % (0-1); Eosinophil# 0.15 X10^3/uL; Eosinophils% 2.5 % (0-5); Hematocrit 41.5 % (37-47); Hemoglobin 12.8 g/dL (12.0-15.0); Lymphocyte # 1.29 X10^3/ul (0.83-4.51); Lymphocyte % 21.3 % (19-41); Mean Corp Hgb Conc 30.8 g/dL (32-36); Mean Corpuscular Hgb 26.1 pg (27.0-32.0); Mean Corpuscular Volume 84.5 fL (81-99); Mean Platelet Vol. 9.9 fl (6.2-12.0); Monocyte# 0.39 X10^3/uL; Monocyte% 6.4 % (0-10); NRBC Flagged by Analyzer 0 % (0-5); Neutrophil # 4.16 X10^3/uL (2.7-7.7); Neutrophil % 68.8 % (47-70); Platelet Count 312 K/mm3 (150-450); RBC Distribution Width CV 15.4 % (11.6-14.6); RBC Distribution Width SD 47.5 fl (35.1-43.9); Red Blood Count 4.91 M/mm3 (4.2-5.4); White Blood Count 6.1 K/mm3 (4.4-11.0)
[2023-09-23 11:19] LABS: ALB/GLOB Ratio 0.8 RATIO (0.9-2.4); AST(SGOT) 15 U/L (15-37); Alanine Aminotransfer ALT/SGPT 20 U/L (13-56); Albumin, Serum 3.4 g/dL (3.2-5.0); Alkaline Phosphatase 110 U/L (45-117); Anion Gap 4 (5-15); BUN 11 mg/dL (7-18); BUN/Creat Ratio 11.4 RATIO (10-20); Calcium,Total 9.1 mg/dL (8.5-10.1); Chloride 106 mmol/L (98-107); Creatinine, Serum 0.97 mg/dL (0.55-1.02); EST Glomerular Filtration Rate 61 mL/min (>60); Est Glom Filt Rate - Afr Amer 73 mL/min (>60); Glucose 107 mg/dL (74-106); Protein, Total 7.4 g/dL (6.4-8.2); Sodium Level 140 mmol/L (136-145)
[2023-09-23 11:51] LABS: Hemoglobin A1c 5.8 % (3.8-5.6)
== END 2023-09-23 23:59 | disposition home or self-care (01) ==
LOC: MFPLAB 08:17
PROVIDERS: PCP Family Medicine; Visit Provider Family Medicine
DX: I10 Essential (primary) hypertension (principal); E66.01 Morbid (severe) obesity due to excess calories; Z68.37 Body mass index [BMI] 37.0-37.9, adult; R73.01 Impaired fasting glucose
CPT/HCPCS: 36415; 80053; 83036; 85025

== ENCOUNTER → 2024-03-22 | Outpatient (CLI) | payer MEDICARE, SELFPAY ==
[2024-03-22 09:57] LABS: Absolute Lymphocyte Count 1.54 X10^3/uL (0.83-4.51); Absolute Neutrophil Count 3.9 X10^3/uL (2.0-7.7); Basophil# 0.04 X10^3/uL; Basophil% 0.7 % (0-1); Eosinophil# 0.16 X10^3/uL; Eosinophils% 2.6 % (0-5); Hematocrit 40.5 % (37-47); Hemoglobin 12.6 g/dL (12.0-15.0); Lymphocyte # 1.54 X10^3/ul (0.83-4.51); Lymphocyte % 25.2 % (19-41); Mean Corp Hgb Conc 31.1 g/dL (32-36); Mean Corpuscular Hgb 25.9 pg (27.0-32.0); Mean Corpuscular Volume 83.2 fL (81-99); Monocyte% 6.5 % (0-10); NRBC Flagged by Analyzer 0 % (0-5); Neutrophil # 3.94 X10^3/uL (2.7-7.7); Neutrophil % 64.5 % (47-70); Platelet Count 286 K/mm3 (150-450); RBC Distribution Width CV 15.4 % (11.6-14.6); RBC Distribution Width SD 46.7 fl (35.1-43.9); Red Blood Count 4.87 M/mm3 (4.2-5.4); White Blood Count 6.1 K/mm3 (4.4-11.0)
[2024-03-22 10:39] LABS: Microalbumin,Random Urine 20.3 mg/L (NO RANGE EST.); Microalbumin:Creatinine Ratio 14.9 mg/g CRE (<30 mg/g CRE)
[2024-03-22 10:47] LABS: ALB/GLOB Ratio 0.8 RATIO (0.9-2.4); AST(SGOT) 16 U/L (15-37); Alanine Aminotransfer ALT/SGPT 20 U/L (13-56); Albumin, Serum 3.3 g/dL (3.2-5.0); Alkaline Phosphatase 106 U/L (45-117); Anion Gap 3 (5-15); BUN 14 mg/dL (7-18); BUN/Creat Ratio 15.5 RATIO (10-20); Calcium,Total 8.9 mg/dL (8.5-10.1); Chloride 110 mmol/L (98-107); Cholesterol 162 mg/dL (200); EST Glomerular Filtration Rate 65 mL/min (>60); Est Glom Filt Rate - Afr Amer 79 mL/min (>60); Globulin 4.3 g/dL (2.2-4.2); Glucose 98 mg/dL (74-106); High Density Lipoprotein 53 mg/dL; Protein, Total 7.6 g/dL (6.4-8.2); Sodium Level 142 mmol/L (136-145); Thyroid Stim Hormone (TSH) 2.63 uIU/mL (0.358-3.74); Triglycerides 117 mg/dL; Very Low Density Lipoprotein 23 mg/dL (5-40)
== END | disposition home or self-care (01) ==
LOC: MFPLAB 09:12
PROVIDERS: PCP Family Medicine; Visit Provider Family Medicine
DX: N18.2 Chronic kidney disease, stage 2 (mild) (principal); E66.01 Morbid (severe) obesity due to excess calories; I12.9 Hypertensive chronic kidney disease with stage 1 through stage 4 chronic kidney disease, or unspecified chronic kidney disease; R73.03 Prediabetes
CPT/HCPCS: 36415; 80053; 80061; 82043; 82570; 83036; 84443; 85025

== ENCOUNTER → 2024-08-18 | Outpatient (CLI) | payer MEDICARE, SELFPAY ==
--- NOTE | 2024-08-18 07:48 | BI_ITS ---
MAMMOGRAPHY - BILATERAL SCREENING REASON FOR EXAM: Female, 69 years old. Routine annual screening examination. PERTINENT HISTORY: Non-contributory. TECHNIQUE: Digital bilateral breast lexa (3D mammographic acquisition) in the CC and MLO projections. 2-D mediolateral oblique (MLO) and craniocaudad (CC) views of both breasts were obtained. CAD: Full Field Digital Mammography with Computer Added Detection was performed. COMPARISON: Comparison is made with prior study dated July 20, 2023 and June 12, 2022. FINDINGS: Breast Composition: There are scattered areas of fibroglandular density. There are no dominant masses or suspicious calcifications. No other significant abnormalities are identified. There has been no significant change since the prior study. BI/SCRN MAMM (CAD)W/LEXA BILAT IMPRESSION: Stable bilateral screening mammogram. Yearly follow-up mammogram recommended. (A) ASSESSMENT CATEGORY: BIRADS Category 1: Negative. A letter regarding these results will be sent to the patient by the facility within 30 days. Approximately 10% of breast cancers are not detected by mammography. A normal mammogram should not delay biopsy of a clinically suspicious abnormality. [id number] Electronically Signed: Clarke Sim MD at 9:15 EDT ,
--- NOTE | 2024-08-18 08:06 | BD_ITS ---
STUDY: DUAL ENERGY X-RAY ABSORPTIOMETRY / DXA REASON FOR EXAM: Female, 69 years old. Postmenopausal TECHNIQUE: Bone Mineral Density (BMD) measurements of lumbar spine and bilateral hips were obtained. COMPARISON: Comparison is made with prior study April 03, 2021. FINDINGS: Lumbar Spine (L1-L4): g/cm2 (1.168) / T-score (1.4) / Z-score (3.5) Findings are suggestive of normal bone density with a low fracture risk. Left Femur Total: g/cm2 (1.066) / T-score (1.0) / Z-score (2.6) Left Femoral Neck: g/cm2 (0.888) / T-score (0.4) / Z-score (2.) Right Femur Total: g/cm2 (0.977) / T-score (0.3) / Z-score (1.9) Right Femoral Neck: g/cm2 (0.875) / T-score (0.2) / Z-score (2.1) The T-Scores on the most recent prior examination were: Lumbar Spine (L1-L4): There has been improvement of bone density since the previous examination. Left Femur Total: which represents a worsening of . Right Femur Total: which represents a worsening of 10.8%. BD/Dexa Bone Density Study IMPRESSION: The patient is considered normal as outlined below according to World Ambrose Organization (WHO) criteria with a low fracture risk. There has been worsening of bone density since the previous examination. Reference Information: The T-score is the number of standard deviations above or below the standard which is normal for young adults at their peak bone mineral density. The World Health Organization (WHO) interprets the T-scores as follows: Above -1 Normal bone density Between -1 and -2.5 Osteopenia Equal to / or below -2.5 Osteoporosis As a practical clinical guideline, osteopenia may be graded as follows: Mild -1 through -1.5 Moderate -1.6 through -2.0 Severe -2.1 through -2.4 The Z-score is the number of standard deviations above or below age-matched controls. A Z-score of less than -1.5 would be considered abnormal. References: 1. NIH Osteoporosis and Related Bone Diseases www osteo.org 2. International Society for Clinical Densitometry www iscd.org 3. National Osteoporosis Foundation www nof.org Electronically Signed: Clarke Sim MD at 12:28 EDT ,
== END | disposition home or self-care (01) ==
LOC: OPBI 07:47
PROVIDERS: PCP Family Medicine; Referring Provider Obstetrics & Gynecology; Visit Provider Obstetrics & Gynecology
DX: Z12.31 Encounter for screening mammogram for malignant neoplasm of breast (principal); Z78.0 Asymptomatic menopausal state
CPT/HCPCS: 77063; 77067; 77080

== ENCOUNTER → 2024-09-29 | Outpatient (CLI) | payer MEDICARE, SELFPAY ==
[2024-09-29 12:17] LABS: ALB/GLOB Ratio 0.8 RATIO (0.9-2.4); AST(SGOT) 16 U/L (15-37); Alanine Aminotransfer ALT/SGPT 16 U/L (13-56); Albumin, Serum 3.3 g/dL (3.2-5.0); Alkaline Phosphatase 110 U/L (45-117); Anion Gap 1 (5-15); BUN 11 mg/dL (7-18); BUN/Creat Ratio 11.7 RATIO (10-20); Chloride 110 mmol/L (98-107); Creatinine, Serum 0.94 mg/dL (0.55-1.02); EST Glomerular Filtration Rate 62 mL/min (>60); Est Glom Filt Rate - Afr Amer 75 mL/min (>60); Globulin 4.2 g/dL (2.2-4.2); Glucose 93 mg/dL (74-106); Potassium 4.2 mmol/L (3.5-5.1); Protein, Total 7.5 g/dL (6.4-8.2); Sodium Level 140 mmol/L (136-145)
== END | disposition home or self-care (01) ==
LOC: MFPLAB 09:12
PROVIDERS: PCP Family Medicine; Visit Provider Family Medicine
DX: R73.03 Prediabetes (principal)
CPT/HCPCS: 36415; 80053

== ENCOUNTER → 2025-01-31 | Outpatient (CLI) | payer MEDICARE, SELFPAY ==
--- NOTE | 2025-01-31 12:55 | RAD_ITS ---
PROCEDURE: SINUSES MIN 3 VIEWS REASON FOR EXAM: FLU-LIKE SYMPTOMS TECHNIQUE: 3 view(s) of the nasal bones. COMPARISON: None. FINDINGS: No visible nasal bone fracture or displacement. Visualized paranasal sinuses appear clear. RAD/Sinuses min 3 Views IMPRESSION: NO DISPLACED OR DEPRESSED NASAL BONE FRACTURE DEMONSTRATED. Reading [facility]
== END | disposition home or self-care (01) ==
LOC: MTLAB 12:47 → MTRAD 12:50
PROVIDERS: PCP Family Medicine; Referring Provider Family Medicine; Visit Provider Family Medicine
DX: R68.89 Other general symptoms and signs (principal)
CPT/HCPCS: 70220

== ENCOUNTER → 2025-03-22 | Outpatient (CLI) | payer MEDICARE, SELFPAY ==
--- NOTE | 2025-03-22 07:42 | CT_ITS ---
PROCEDURE: SINUS/FACIAL BONE (CTSI), 03/22/2025 REASON FOR EXAM: SINISITIS TECHNIQUE: CT sinuses was performed without IV contrast. Multiplanar reformats were generated. RADIATION DOSE SUMMARY: CTDlvol: 33.06 mGy DLP: 784.26 mGycm One or more dose reduction techniques were used (e.g., Automated exposure control, adjustment of the mA and/or kV according to patient size, use of iterative reconstruction technique). COMPARISON: None FINDINGS: Operative changes: None. Paranasal sinuses: Trace mucosal thickening of 1 mm or less along the inferior LEFT maxillary sinus. Focal mild mucosal thickening along the posterosuperior LEFT maxillary sinus, up to roughly 5 mm. Trace mucosal thickening of roughly 1 mm along the anterior [id number]-RIGHT sphenoid sinuses. Trace mucosal thickening of 1 mm along the LEFT frontal recess.. Outflow tracts: Patent. Anatomic variants: Bilateral maxillary accessory ostia. Rightward nasal septal deviation of roughly 3 mm. Trace supraorbital pneumatization on the LEFT. Slightly asymmetric olfactory fossa heights, RIGHT higher than LEFT. Other: Hyperostosis frontalis. Partially empty sella suspected, can be a normal variant or may be seen in the setting of idiopathic intracranial hypertension amongst other etiologies. Cervical spinal degenerative changes are partially imaged. Intracranial atherosclerosis. CT/Sinus/Facial Bone IMPRESSION: 1. Trace to mild LEFT maxillary predominant paranasal sinus disease as above. No findings to suggest acute sinusitis. 2. Outflow tracts are patent. 3. Additional description as above. Reading Location: [id number]
== END | disposition home or self-care (01) ==
PROVIDERS: PCP Family Medicine; Referring Provider Otolaryngology; Visit Provider Otolaryngology
DX: J32.8 Other chronic sinusitis (principal)
CPT/HCPCS: 70486

== ENCOUNTER → 2025-03-24 | Outpatient (CLI) | payer MEDICARE, SELFPAY ==
[2025-03-24 15:33] LABS: Absolute Lymphocyte Count 1.67 X10^3/uL (0.83-4.51); Basophil# 0.03 X10^3/uL; Basophil% 0.4 % (0-1); Eosinophil# 0.14 X10^3/uL; Eosinophils% 1.9 % (0-5); Hematocrit 40.4 % (37-47); Hemoglobin 12.7 g/dL (12.0-15.0); Lymphocyte # 1.67 X10^3/ul (0.83-4.51); Lymphocyte % 22.7 % (19-41); Mean Corp Hgb Conc 31.4 g/dL (32-36); Mean Corpuscular Hgb 25.9 pg (27.0-32.0); Mean Corpuscular Volume 82.3 fL (81-99); Mean Platelet Vol. 9.9 fl (6.2-12.0); Monocyte# 0.49 X10^3/uL; Monocyte% 6.6 % (0-10); NRBC Flagged by Analyzer 0 % (0-5); Neutrophil # 5.01 X10^3/uL (2.7-7.7); Platelet Count 306 K/mm3 (150-450); RBC Distribution Width CV 15.5 % (11.6-14.6); RBC Distribution Width SD 46.6 fl (35.1-43.9); Red Blood Count 4.91 M/mm3 (4.2-5.4); White Blood Count 7.4 K/mm3 (4.4-11.0)
[2025-03-24 16:12] LABS: Hemoglobin A1c 6.6 % (<=5.6)
[2025-03-24 16:32] LABS: Vitamin D,25 Hydroxy 29.7 ng/mL (30-100)
[2025-03-24 18:29] LABS: Microalbumin,Random Urine 13.8 mg/L (NO RANGE EST.); Microalbumin:Creatinine Ratio 79.8 mg/g CRE
== END | disposition home or self-care (01) ==
LOC: MTLAB 12:32
PROVIDERS: PCP Family Medicine; Referring Provider Family Medicine; Visit Provider Family Medicine
DX: I12.9 Hypertensive chronic kidney disease with stage 1 through stage 4 chronic kidney disease, or unspecified chronic kidney disease (principal); N18.2 Chronic kidney disease, stage 2 (mild); R73.03 Prediabetes
CPT/HCPCS: 36415; 82043; 82306; 82570; 83036; 85025

== ENCOUNTER 2025-05-31 09:27 | Outpatient (RCR) | payer MEDICARE, SELFPAY | END 2025-06-22 23:59 | LOC: NS 09:27 | PROVIDERS: PCP Family Medicine; Referring Provider Nurse Practitioner Family; Visit Provider Nurse Practitioner Family | DX: Z71.3 Dietary counseling and surveillance (principal); R63.4 Abnormal weight loss; N18.2 Chronic kidney disease, stage 2 (mild) | CPT/HCPCS: 97802 ==

== ENCOUNTER 2025-07-20 08:59 | Outpatient (RCR) | payer MEDICARE, SELFPAY | END 2025-07-23 23:59 | LOC: NS 08:59 | PROVIDERS: PCP Family Medicine; Referring Provider Nurse Practitioner Family; Visit Provider Nurse Practitioner Family | DX: Z71.3 Dietary counseling and surveillance (principal); N18.2 Chronic kidney disease, stage 2 (mild); R63.4 Abnormal weight loss; R73.03 Prediabetes | CPT/HCPCS: 97803 ==

== ENCOUNTER → 2025-11-02 | Outpatient (CLI) | payer MEDICARE, SELFPAY ==
--- NOTE | 2025-11-02 07:56 | BI_ITS ---
EXAM: SCRN MAMM (CAD)W/LEXA BILAT DATE: 11/02/2025 CLINICAL HISTORY: F, Age 70 y/o , BREAST CANCER SCREENING No family history. TECHNIQUE: Procedure Code: [id number] Modality: MG Procedure: SCRN MAMM (CAD)W/LEXA BILAT COMPARISON: Prior exam(s) dated August 18, 2024. FINDINGS: TISSUE DENSITY: There are scattered areas of fibroglandular density. Bilateral Breast Mammographic Findings: No significant masses, calcifications or other abnormalities are identified. No suspicious masses, areas of developing architectural distortion, or suspicious calcifications. There has been no significant interval change. BI/SCRN MAMM (CAD)W/LEXA BILAT IMPRESSION: Stable bilateral screening mammogram. OVERALL FINAL ASSESSMENT BI-RADS 1: NEGATIVE. RECOMMENDATION: Routine annual follow-up in 1 Year Additional Recommendation none A letter with findings and recommendations will be mailed to the patient. Reading Location: [place] [id number]
--- OUTSIDE RECORDS SUMMARY | 2025-11-02 08:16 | XMS RPT_ITS | CCD ---
Author Organization [facility]ini[facility] Care Team Providers Care Helicopter Repairer Name Role Phone ROWDY LISA T Unavailable Unavailable ROWDY, LISA T Unavailable Unavailable ROWDY, LISA T Unavailable Unavailable ROWDY, LISA T Unavailable Unavailable Dr. Augusta Mcintosh Primary Care Provider Dr. Augusta Mcintosh Referring Provider 1([facility])[phone] Dr. Danay Padron Attending Provider 1([facility] )[phone] Dr. Augusta Mcintosh Primary Care Provider 1([facility])[phone] Dr. Augusta Mcintosh Referring Provider 1([facility])[phone] Dr. Danay Padron Attending Provider 1([facility] )[phone] Dr. Augusta Mcintosh Primary Care Provider 1([facility])[phone] Dr. Augusta Mcintosh Referring Provider 1([facility])[phone] Dr. Danay Padron Attending Provider 1([facility] )[phone] Dr. Augusta Mcintosh Primary Care Provider Dr. Augusta Mcintosh Referring Provider 1([facility])[phone] Dr. Danay Padron Attending Provider 1([facility] )[phone] Dr. Augusta Mcintosh MD Primary Care Provider 1([facility])[phone] Dr. Augusta Mcintosh MD Referring Provider 1([facility])[phone] Marquis Mcdermott Attending Provider Dr. Augusta Mcintosh MD Attending Provider [phone] Sussy CRESPO, Dr. Erickson Attending Provider Dr. Dre Hi MD Referring Provider Dr. Augusta Mcintosh MD Primary Care Provider 1([facility])[phone] Dr. Augusta Mcintosh MD Attending Provider 1([facility])[phone] Dr. Augusta Mcintosh MD Referring Provider [phone] Vito CRESPO, Dr. Jon Attending Provider [phone] Dick CONSULTING SOLUTION DIRECTOR-C, Valerie Attending Provider Dick CONSULTING SOLUTION DIRECTOR-C, Valerie Referring Provider Arnaldo CRESPO, Dr. Beth Primary Care Provider [phone] Arnaldo CRESPO, Dr. Beth Referring Provider Dick CONSULTING SOLUTION DIRECTOR, Valerie Referring Unavailable Mcintosh, Augusta Primary Care Unavailable Dick CONSULTING SOLUTION DIRECTOR, Valerie Attending Unavailable Dick CONSULTING SOLUTION DIRECTOR, Valerie Attending Unavailable Dick CONSULTING SOLUTION DIRECTOR, Valerie Referring Unavailable Mcintosh, Augusta Primary Care Unavailable Mcintosh, Augusta Primary Care Unavailable Danay Padron Attending Unavailable Danay Padron Referring Unavailable Arnaldo, Augusta Attending Unavailable Mcintosh, Augusta Primary Care Unavailable Mcintosh, Augusta Referring Unavailable Mcintosh, Augusta Primary Care Unavailable Mcintosh, Augusta Attending Unavailable Mcintosh, Augusta Primary Care Unavailable Dre Hi Attending UnavailDre Rodney Referring Unavailabl maris Mcintosh, Augusta Referring Unavailable Mcintosh, Augusta Primary Care Unavailable Mcintosh, Augusta Attending Unavailable Dick CONSULTING SOLUTION DIRECTOR, Valerie Attending Unavailable Dick CONSULTING SOLUTION DIRECTOR, Valerie Referring Unavailable Mcintosh, Augusta Primary Care Unavailable Mcintosh, Augusta Referring Unavailable Mcintosh, Augusta Primary Care Unavailable Danay Padron Attending Unavailable Mcintosh, Augusta Referring Unavailable Mcintosh, Augusta Primary Care Unavailable Marquis Hernandez NP Attending Unavailable Medications Current Medications Medication Drug Class(es) Dates Sig (Normalized) Sig (Original) metFORMIN hydrochloride 500 mg oral tablet (2 sources) Biguanide Start: 04-03-2025 take 1 tablet by mouth once daily Metformin 500 mg tablet Active 500 mg PO daily April 03, 2025 12:00am Multivitamin,Tx-Iron- Minerals (Complete Multivitamin) tablet (5 sources) Start: 01-12-2018 Multivitamin,Tx-I maranda-Minerals (Complete Multivitamin) tablet Active 1 {tbl} PO daily January 12, 2018 1:00am multivitamin,tx-iron- minerals tablet (7 sources) Start: 01-12-2018 take 1 tablet by mouth once daily multivitamin,tx-i maranda-minerals tablet Active 1 TABLET PO daily January 12, 2018 10:03am Start: 01-12-2018 take 1 tablet by gracie th once daily multivitamin,mb-sxrc-nqlpsnqa tablet Act marek 1 TABLET PO daily January 12, 2018 12:00am Start: 01-12-2018 take 1 tablet by gracie th once daily multivitamin,bv-lbnh-vkatbkkq tablet Act marek 1 TABLET PO daily January 12, 2018 1:00am ramipril 5 mg oral capsule (8 sources) Angiotensin Converting Enzyme Inhibitor Start: 11-27-2022 take 1 capsule by mouth once daily Ramipril 5 mg capsule Active 5 mg PO DAILY November 27, 2022 1:00am Completed/Discontinued Medications Medication Drug Class(es) Dates Sig (Normalized) Sig (Original) amoxicillin 875 mg / clavulanate 125 mg oral tablet (5 sources) Penicillin-class Antibacterial Start: 12-26-2024 End: 01-02-2025 Amoxicillin-Pot Clavulanate 875-125 mg tablet Discontinued 1 {tbl} PO TWICE A DAY 14 7 0 December 26, 2024 1:00am January 01, 2025 1:00am January 02, 2025 1:10am ibuprofen 800 mg oral tablet (12 sources) Nonsteroidal Anti-inflammatory Drug Start: 10-24-2016 End: 01-12-2018 take 1 tablet by mouth three times daily as needed for pain Ibuprofen 800 MG tablet Discontinued 800 mg PO 3 TIMES DAILY NEEDED as needed for Pain 20 0 October 24, 2016 5:53am January 12, 2018 10:02am indapamide 2.5 mg oral tablet (12 sources) Thiazide-like Diuretic Start: 01-20-2018 End: 08-29-2021 take 1 tablet by mouth once daily in the morning Indapamide 2.5 mg tablet Discontinued 2.5 mg PO EVERY MORNING January 20, 2018 1:00am August 29, 2021 8:52am predniSONE 20 mg oral tablet (5 sources) Start: 12-26-2024 End: 12-31-2024 take 2 tablets by mouth once daily Prednisone 20 mg tablet Discontinued 40 mg PO daily 10 5 0 December 26, 2024 1:00am December 30, 2024 1:00am December 31, 2024 1:22am quinapril 20 mg oral tablet (20 sources) Angiotensin Converting Enzyme Inhibitor Start: 08-29-2021 End: 11-27-2022 take 10 mg by mouth once daily Quinapril 20 mg tablet Discontinued 10 mg PO daily August 29, 2021 8:53am November 27, 2022 12:09pm Start: 08-29-2021 End: 11-27-2022 take 10 mg by mouth once daily Quinapril Discontinued 10 MG PO daily August 29, 2021 8:53am November 27, 2022 12:09pm Start: 01-12-2018 End: 08-29-2021 take 1 tablet by mouth once daily Quinapril 20 mg tablet Discontinued 20 mg PO daily January 12, 2018 1:00am August 29, 2021 8:53am Problems Active Problems Problem Classification Problem Date Documented Date Episodic/Chronic Chronic kidney disease (2 sources) Chronic kidney disease, stage 2 (mild); Translations: [Chronic kidney disease, stage 2 (mild)] Onset: 07-24-2025 Chronic Essential hypertension (12 sources) Hypertensive disorder; Translations: [Essential (primary) hypertension] 11-19-2021 Chronic Comment on above: CONTROLLED ON MED Hypertension with complications and secondary hypertension (1 source) Hypertensive chronic kidney disease with stage 1 through stage 4 chronic kidney disease, or unspecified chronic kidney disease; Translations: [Hypertensive chronic kidney disease with stage 1 through stage 4 chronic kidney disease, or unspecified chronic kidney disease] Onset: 03-29-2025 Chronic Menopausal disorders (16 sources) Postmenopausal bleeding; Translations: [Postmenopausal bleeding] Chronic Comment on above: US small fibroid, li hugh 11mm Other female genital disorders (12 sources) Simple endometrial glandular hyperplasia without atypia; Translations: [Benign endometrial hyperplasia] 11-29-2021 Chronic Comment on above: Plan hysteroscopy D& C with symphion with SM, IUD placed Other female genital disorders (12 sources) Complex endometrial hyperplasia without atypia; Translations: [Benign endometrial hyperplasia] 11-27-2022 Chronic Comment on above: plan IUD 6 months, r epeat EMB done 06/13. if normal fu 6 months and remove IUD and repeat EMB. if still hyperplasia continue IUD and repeat EMB in 6 months - 06/13 EMB nl. repeat EMB 12/15 and IUD removed then Other female genital disorders (5 sources) Benign endometrial hyperplasia; Translations: [Complex endometrial hyperplasia without atypia] Chronic Other upper respiratory infections (1 source) Other chronic sinusitis; Translations: [Other chronic sinusitis] Onset: 03-31-2025 Chronic Residual codes; unclassified (12 sources) Abnormal cytology findings; Translations: [ASCUS favor benign] 08-29-2021 Episodic Comment on above: 2017 ASCUS neg HPV. 08/2021 pending Past or Other Problems Problem Classification Problem Date Documented Da te Episodic/Chronic Diabetes mellitus without complication (1 source) Prediabetes; Translations: [Prediabetes] Onset: 10-25-2024 Episodic Other upper respiratory infections (9 sources) Upper respiratory infection; Translations: [Acute upper respiratory infection, unspecified] Onset: 12-26-2024 12-26-2024 Episodic Residual codes; unclassified (1 source) Other general symptoms and signs; Translations: [Other general symptoms and signs] Onset: 02-10-2025 Episodic Unclassified (2 sources) Encounter for screening for malignant neoplasm of colon; Translations: [Encounter for screening mammogram for malignant neoplasm of breast] Onset: 06-10-2018 Episodic Unclassified (10 sources) bilateral carpal tunnel surgery 06-12-2022 Unclassified (10 sources) gallbladder surgery 06-12-2022 Results Test Name Value Interpretation Reference Range Facility Microalb:Creat Ratio,Random URon 05-12-2025 MALB:CREAT 8.0 mg/g CRE Normal [facility] Comment on above: Order Comment: Order Date: 09/29/24 Order Info: [id number] - MIACRE Result Comment: AMENDED REPORT 05/12/25 0825 MALB:CREAT previously reported as: 79.8 mg/g CRE Performed By: #### L 100.0100, L502.0250, L501.9985 #### [facility] [address] [place], [address] Competitive Intelligence Analyst Office Visit Reporton 04-03-2025 Competitive Intelligence Analyst Office Visit Report [facility] [address], [address] [place] [address] OFFICE VISIT Date of Service: 04/03/25 MR#: [id number] Acct: [id number] Name: JERRI PITTS Rep #: [id number] : 1955 Provider: Dr. 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 Is patient in pain?: No Allergies No Known Allergies Allergy (Verified 04/03/25 11:01) Medications ???Medication ???Instructions ???Recorded ???Confirmed ???Type multivitamin,rp-okrx-aqzp rals 1 tab PO QDAY 01/12/18 04/03/25 Hi story (Complete Multivitamin tablet) ramipril 5 mg capsule 5 mg PO DAILY 11/27/22 04/03/25 Hi story metformin 500 mg tablet 500 mg PO QDAY 04/03/25 04/03/25 H istory Is last menstrual period known: No Post menopausal: Yes Patient : No : No PFSH Medical History Complex endometrial hyperplasia without atypia Wears glasses Arthritis Non-smoker Simple endometrial hyperplasia without atypia Hypertension Surgical History H/O dilation and curettage bilateral carpal tunnel surgery gallbladder surgery History of tonsillectomy History of bilateral knee replacement Social History current occupational status: retired current occupation: [employer] Smoking Status: Never smoker alcohol intake: never substance use type: does not use caffeine: Yes what type of physical activity do you participate in: none seatbelt use: always do you feel safe at home: Yes additional social history: Mariely History 1 Elective abortions Hx Para 1 Spontaneous abortions Hx # Term Pregnancies Ectopic pregnancies Hx # Pregnancies Multiple births # of living children Past Pregnancies Del. Date Name GA/Weeks Outcome Route Bth Weight Infant Gen Labor Lgth Anesthesia Del Locatn Provider FOB Unknown 1982 [facility] Encounter for routine gynecological examination Details: JERRI PITTS is a 69 year old who presents for annual exam. Last PAP: 2020 nl History of abnormal PAP: no severe Last mammogram: 2023 History of abnormal mammogram: Colon cancer screening: up to date Other preventative health care screenings: pcp augusta mcintosh Female Reproductive History Questions: metorrhagia: No, sexually active: Yes, dyspareunia: No and PCB: No Menopausal Symptoms: No hot flashes, No night sweats, No weight change, No mood changes, No difficulty concentrating, No sleep problems and No change in libido ROS Const Constitutional: Reports as per HPI; Denies fatigue, increased appetite, poor appetite, night sweats, weight gain or weight loss Cardio Card: Denies chest pain Resp Resp: Denies cough or dyspnea GI GI: Reports as per HPI; Denies abdominal pain, bloating, constipation, nausea or vomiting : Reports as per HPI and other; Denies difficulty voiding, dysuria, hematuria, hot flashes, nipple discharge, pelvic pain, prolapse symptoms, urinary frequency, urinary incontinence, urinary urgency, vaginal discharge, vaginal dryness, vaginal odor or vaginal pruritus Skin Skin/Breast: Denies changing lesions, breast mass, breast pain, breast skin changes or nipple discharge Psych Psych: Denies anxiety, change in libido, depression or difficulty concentrating Exam Const General: cooperative, healthy appearing, comfortable, no acute distress, well developed and well groomed HENMT Head: normal to inspection and normocephalic Ears: hearing grossly normal bilaterally and external ears normal Nose: external nose normal Face and sinus: normal facial exam Neck Neck: normal visual inspection, full ROM and no lymphadenopathy Thyroid: thyroid normal Chest Chest palpation inspection: normal inspection of the chest Breast inspection: normal inspection of the breasts and normal inspection of the axillae Breast palpation: normal palpation of the breasts, normal palpation of the axillae and no axillary lymphadenopathy Resp Effort Inspection: normal respiratory effort GI Inspection: normal to inspection and non-distended Palpation: soft, no hepatosplenomegaly and no guarding General: bladder normal to palpation External Female Exam: normal external appearance, normal appearance of the urethra and no lesions Urethra: normal appearance of the urethra and normal palpation Speculum Exam - Vagina: normal appearance of the vagina and normal vaginal dis (more content not included)... Normal [facility] Absolute lymphocyte countOrd ered By: Augusta Mcintosh on 03-24-2025 Lymphocytes Auto (Unsp spec) [#/Vol] 1.67 10*3/uL 0.83-4.51 [facility] Absolute neutrophil countOrd ered By: Augusta Mcintosh on 03-24-2025 Neutrophils (Bld) [#/Vol] 5.0 10*3/uL 2.0-7.7 [facility] Automated lymphocyte count a s percentage of total leukocytesOrdered By: Augusta Mcintosh on 03-24-2025 Lymphocytes/100 WBC Auto (Unsp spec) 22.7 % 19-41 [facility] Basophil percentageOrdered B y: Augusta Mcintosh on 03-24-2025 Basophils/100 WBC (Bld) 0.4 % 0-1 [facility] CBC W/Diff, Automatedon -2024 Absolute Lymph 1.67 X10 3/uL Normal 0.83-4.51 [facility] Comment on above: Order Comment: Order Date: 09/29/24 Order Info: [id number] - CBCD Comments: pediatri tube Performed By: #### L 100.0100, L502.0250, L501.9985 #### [facility] [address] [place], [address] Absolute Neut 5.0 X10 3/uL Normal 2.0-7.7 [facility] Comment on above: Order Comment: Order Date: 09/29/24 Order Info: 0184-1 - CBCD Comments: pediatri tube Performed By: #### L 100.0100, L502.0250, L501.9985 #### [facility] [address] [place], [address] Basophils/100 WBC (Bld) 0.4 % Normal 0-1 [facility] Comment on above: Order Comment: Order Date: 09/29/24 Order Info: 0184-1 - CBCD Comments: pediatri tube Performed By: #### L 100.0100, L502.0250, L501.9985 #### [facility] [address] [place], [address] Eosinophils/100 WBC (Bld) 1.9 % Normal 0-5 [facility] Comment on above: Order Comment: Order Date: 09/29/24 Order Info: 0184-1 - CBCD Comments: pediatri tube Performed By: #### L 100.0100, L502.0250, L501.9985 #### [facility] [address] [place], [address] Erythrocyte distribution width (RBC) [Ratio] 15.5 % High 11.6-14.6 [facility] Comment on above: Order Comment: Order Date: 09/29/24 Order Info: 0184-1 - CBCD Comments: pediatri tube Performed By: #### L 100.0100, L502.0250, L501.9985 #### [facility] [address] [place], [address] Hematocrit (Bld) [Volume fraction] 40.4 % Normal 37-47 [facility] Comment on above: Order Comment: Order Date: 09/29/24 Order Info: 0184-1 - CBCD Comments: pediatri tube Performed By: #### L 100.0100, L502.0250, L501.9985 #### [facility] [address] [place], [address] Hemoglobin (Bld) [Mass/Vol] 12.7 g/dL Normal 12.0-15.0 [facility] Comment on above: Order Comment: Order Date: 09/29/24 Order Info: [id number] - CBCD Comments: pediatri tube Performed By: #### L 100.0100, L502.0250, L501.9985 #### [facility] [address] [place], [address] IG% 0.400 Normal 0.0-0.9 [facility] Comment on above: Order Comment: Order Date: 09/29/24 Order Info: 0184-1 - CBCD Comments: pediatri tube Result Comment: IG% - Immature Granulocytes (promyelocytes, myelocytes and metamyelocytes) > 1% indicates that a LEFT SHIFT is Present. Performed By: #### L 100.0100, L502.0250, L501.9985 #### [facility] [address] [place], [address] Lymphocytes/100 WBC (Bld) 22.7 % Normal 19-41 [facility] Comment on above: Order Comment: Order Date: 09/29/24 Order Info: 0184-1 - CBCD Comments: pediatri tube Performed By: #### L 100.0100, L502.0250, [id number] #### [facility] [address] [place], [address] MCH (RBC) [Entitic mass] 25.9 pg Low 27.0-32.0 [facility] Comment on above: Order Comment: Order Date: 09/29/24 Order Info: 0184-1 - CBCD Comments: pediatri tube Performed By: #### L 100.0100, L502.0250, L501.9985 #### [facility] [address] [place], [address] MCHC (RBC) [Mass/Vol] 31.4 g/dL Low 32-36 [facility] Comment on above: Order Comment: Order Date: 09/29/24 Order Info: 0184-1 - CBCD Comments: pediatri tube Performed By: #### L 100.0100, L502.0250, L501.9985 #### [facility] [address] [place], [address] MCV (RBC) [Entitic vol] 82.3 fL Normal 81-99 [facility] Comment on above: Order Comment: Order Date: 09/29/24 Order Info: 0184-1 - CBCD Comments: pediatri tube Performed By: #### L 100.0100, L502.0250, L501.9985 #### [facility] [address] [place], [address] Monocytes/100 WBC (Bld) 6.6 % Normal 0-10 [facility] Comment on above: Order Comment: Order Date: 09/29/24 Order Info: 0184-1 - CBCD Comments: pediatri tube Performed By: #### L 100.0100, L502.0250, L501.9985 #### [facility] [address] [place], [address] Neutrophils/100 WBC (Bld) 68.0 % Normal 47-70 [facility] Comment on above: Order Comment: Order Date: 09/29/24 Order Info: 0184-1 - CBCD Comments: pediatri tube Performed By: #### L 100.0100, L502.0250, L501.9985 #### [facility] [address] [place], [address] Nucleated RBC (Bld) [#/Vol] 0 10*3/uL Normal 0-5 [facility] Comment on above: Order Comment: Order Date: 09/29/24 Order Info: 0184-1 - CBCD Comments: pediatri tube Performed By: #### L 100.0100, L502.0250, L501.9985 #### [facility] [address] [place], [address] Platelet mean volume (Bld) [Entitic vol] 9.9 fL Normal 6.2-12.0 [facility] Comment on above: Order Comment: Order Date: 09/29/24 Order Info: 0184-1 - CBCD Comments: pediatri tube Performed By: #### L 100.0100, L502.0250, L501.9985 #### [facility] [address] [place], [address] Platelets (Bld) [#/Vol] 306 10*3/uL Normal 150-450 [facility] Comment on above: Order Comment: Order Date: 09/29/24 Order Info: 0184-1 - CBCD Comments: pediatri tube Performed By: #### L 100.0100, L502.0250, L501.9985 #### [facility] [address] [place], [address] RBC (Bld) [#/Vol] 4.91 10*6/uL Normal 4.2-5.4 [facility] Comment on above: Order Comment: Order Date: 09/29/24 Order Info: 0184-1 - CBCD Comments: pediatri tube Performed By: #### L 100.0100, L502.0250, L501.9985 #### [facility] [address] [place], [address] RDW SD 46.6 fl High 35.1-43.9 [facility] Comment on above: Order Comment: Order Date: 09/29/24 Order Info: 0184-1 - CBCD Comments: pediatri tube Performed By: #### L 100.0100, L502.0250, L501.9985 #### [facility] [address] [place], [address] WBC (Bld) [#/Vol] 7.4 10*3/uL Normal 4.4-11.0 [facility] Comment on above: Order Comment: Order Date: 09/29/24 Order Info: 0184-1 - CBCD Comments: pediatri tube Performed By: #### L 100.0100, L502.0250, L501.9985 #### [facility] [address] [place], [address] Eosinophil percentageOrdered By: Augusta Mcintosh on 03-24-2025 Eosinophils/100 WBC (Bld) 1.9 % 0-5 [facility] Erythrocyte distribution wid th ratioOrdered By: Augusta Mcintosh on 03-24-2025 Erythrocyte distribution width (RBC) [Ratio] 15.5 % High 11.6-14.6 [facility] Erythrocyte distribution wid th standard deviationOrdered By: Augusta Mcintosh on 03-24-2025 Erythrocyte distribution width (RBC) [Ratio] 46.6 fl High 35.1-43.9 [facility] Hematocrit Auto (Bld) [Volum e fraction]Ordered By: Augusta Mcintosh on 03-24-2025 Hematocrit (Bld) [Volume fraction] 40.4 % 37-47 [facility] Hemoglobin A1con 03-24-2025 HbA1c (Bld) [Mass fraction] 6.6 % High <=5.6 [facility] Comment on above: Order Comment: Order Date: 09/29/24 Order Info: [id number] - A1C Comments: pediatri tube Result Comment: Norm al < 5.7 % Prediabetic 5.7 - 6.4 % Diabetic >or= 6.5 % Please note range changes. Performed By: #### L 100.0100, L502.0250, L501.9985 #### [facility] [address] [place], [address] Hemoglobin A1c percentageOrd ered By: Augusta Mcintosh on 03-24-2025 HbA1c (Bld) [Mass fraction] 6.6 % High <5.7 [facility] Comment on above: Normal < 5.7 % Predi abetic 5.7 - 6.4 % Diabetic >or= 6.5 % Please note range changes. Hemoglobin measurementOrdere d By: Augusta Mcintosh on 03-24-2025 Hemoglobin (Bld) [Mass/Vol] 12.7 g/dL 12.0-15.0 [facility] Immature granulocytes/100 WB C Auto (Bld)Ordered By: Augusta Mcintosh on 03-24-2025 Immature granulocytes/100 WBC (Bld) 0.400 % 0.0-0.9 [facility] Comment on above: IG% - Immature Granu locytes (promyelocytes, myelocytes and metamyelocytes) > 1% indicates that a LEFT SHIFT is Present. MCV (mean corpuscular volume ) determinationOrdered By: Augusta Mcintosh on 03-24-2025 MCV (RBC) [Entitic vol] 82.3 fL 81-99 [facility] Mean corpuscular hemoglobin (MCH) determinationOrdered By: Augusta Mcintosh on 03-24-2025 MCH (RBC) [Entitic mass] 25.9 pg Low 27.0-32.0 [facility] Mean corpuscular hemoglobin concentration (MCHC) determinationOrdered By: Augusta Mcintosh on 03-24-2025 MCHC (RBC) [Mass/Vol] 31.4 g/dL Low 32-36 [facility] Mean platelet volume determi nationOrdered By: Augusta Mcintosh on 03-24-2025 Platelet mean volume (Bld) [Entitic vol] 9.9 fL 6.2-12.0 [facility] Monocyte percentageOrdered B y: Augusta Mcintosh on 03-24-2025 Monocytes/100 WBC (Bld) 6.6 % 0-10 [facility] Neutrophil percentageOrdered By: Augusta Mcintosh on 03-24-2025 Neutrophils/100 WBC (Bld) 68.0 % 47-70 [facility] Nucleated red blood cell per centageOrdered By: Augusta Mcintosh on 03-24-2025 Nucleated RBC/100 WBC (Bld) [Ratio] 0 % 0-5 [facility] Platelet countOrdered By: Sushil Mcintosh on 03-24-2025 Platelets (Bld) [#/Vol] 306 10*3/uL 150-450 [facility] RBC Auto (Bld) [#/Vol]Ordere d By: Augusta Mcintosh on 03-24-2025 RBC (Bld) [#/Vol] 4.91 10*6/uL 4.2-5.4 [facility] Random urine creatinine radha urement (mass/volume)Ordered By: Augusta Mcintosh on 03-24-2025 Creatinine Unsp time (U) [Mass/Vol] 173.00 mg/dL 28.00-217.0 0 [facility] Urine albumin measurement wi th detection limit of 20 mg/L or less (mass/volume)Ordered By: Augusta Mcintosh on 03-24-2025 Albumin DL <= 20 mg/L (U) [Mass/Vol] 13.8 mg/L NO RANGE EST. [facility] Vitamin D,25 Hydroxyon 03-24 Vitamin D 25-OH 29.7 ng/mL Low 30-100 [facility] Comment on above: Result Comment: Dee min D Status Deficiency: <20 ng/mL (50nmol/L) Insufficiency: 20-30 ng/mL (50-75 nmol/L) Sufficiency: 30-100 ng/mL (75-250 nmol/L) Toxicity: >100 ng/mL (>250 nmol/L) Performed By: #### L 100.0100, L502.0250, L501.9985 #### [facility] [address] [place], [place], [address] White blood cell (WBC) count Ordered By: Augusta Mcintosh on 03-24-2025 WBC (Bld) [#/Vol] 7.4 10*3/uL 4.4-11.0 [facility] Sinus/Facial Boneon 03-22-20 Sinus/Facial Bone [facility] Imaging Services [address] [place] [address] Sinus/Facial Bone MR#: [id number] Acct: [id number] Name: JERRI PITTS Rep #: [id number] : 1955 F 69 From: Kvng Whitten MD PCP: Dr. Augusta Mcintosh MD Status: REG CLI Study: Sinus/Facial Bone Date of Exam: 03/22/25 Exam# [id number] Ordering Dr: Dre Hi MD PROCEDURE: SINUS/FACIAL BONE (CTSI), 03/22/2025 REASON FOR EXAM: SINISITIS TECHNIQUE: CT sinuses was performed without IV contrast. Multiplanar reformats were generated. RADIATION DOSE SUMMARY: CTDlvol: 33.06 mGy DLP: 784.26 mGycm One or more dose reduction techniques were used (e.g., Automated exposure control, adjustment of the mA and/or kV according to patient size, use of iterative reconstruction technique). COMPARISON: None FINDINGS: Operative changes: None. Paranasal sinuses: Trace mucosal thickening of 1 mm or less along the inferior LEFT maxillary sinus. Focal mild mucosal thickening along the posterosuperior LEFT maxillary sinus, up to roughly 5 mm. Trace mucosal thickening of roughly 1 mm along the anterior AEFL-lzrysxc-pqjp-RIGHT sphenoid sinuses. Trace mucosal thickening of 1 mm along the LEFT frontal recess.. Outflow tracts: Patent. Anatomic variants: Bilateral maxillary accessory ostia. Rightward nasal septal deviation of roughly 3 mm. Trace supraorbital pneumatization on the LEFT. Slightly asymmetric olfactory fossa heights, RIGHT higher than LEFT. Other: Hyperostosis frontalis. Partially empty sella suspected, can be a normal variant or may be seen in the setting of idiopathic intracranial hypertension amongst other etiologies. Cervical spinal degenerative changes are partially imaged. Intracranial atherosclerosis. CT/Sinus/Facial Bone IMPRESSION: 1. Trace to mild LEFT maxillary predominant paranasal sinus disease as above. No findings to suggest acute sinusitis. 2. Outflow tracts are patent. 3. Additional description as above. Reading Location: [facility] CC: Dr. Dre Hi MD; Dr. Augusta Mcintosh MD Edge Stainer Machine: Signed Normal [facility] Sinuses min 3 Viewson 2024 Sinuses min 3 Views [facility] Imaging Services [address] [place] [address] Sinuses min 3 Views MR#: [id number] Acct: [id number] Name: JERRI PITTS Rep #: [id number] : 1955 F 69 From: Kvng Rich MD PCP: Dr. Augusta Mcintosh MD Status: REG CLI Study: Sinuses min 3 Views Date of Exam: 01/31/25 Exam# [id number] Ordering Dr: Augusta Mcintosh MD PROCEDURE: SINUSES MIN 3 VIEWS REASON FOR EXAM: FLU-LIKE SYMPTOMS TECHNIQUE: 3 view(s) of the nasal bones. COMPARISON: None. FINDINGS: No visible nasal bone fracture or displacement. Visualized paranasal sinuses appear clear. RAD/Sinuses min 3 Views IMPRESSION: NO DISPLACED OR DEPRESSED NASAL BONE FRACTURE DEMONSTRATED. Reading Location: [facility] CC: Dr. Augusta Mcintosh MD Edge Stainer Machine: Signed Normal [facility] Urgent Care Visit Reporton 0 12-26-2024 Urgent Care Visit Report [facility] [address], [address] [place] [address] OFFICE VISIT Date of Service: 12/26/24 MR#: [id number] Acct: [id number] Name: JERRI PITTS Rep #: [id number] : 1955 Provider: MIGUEL morton Age/Sex: 69/F Location: [facility] Status: Signed Intake Vital Signs 08/18/24 08:07 12/26/24 15:08 Height 5 ft 1 in 5 ft 1 in Weight: 209 lb 6 oz BMI 39.5 BP 120/78 Position Sitting Pulse 85 Temp 97.7 F L Temp Source Oral Pulse Oximetry (%) 95 Oxygen Delivery Method room air Intake Visit Reasons: Cough Allergies No Known Allergies Allergy (Verified 12/26/24 14:59) Medications ???Medication ???Instructions ???Recorded ???Confirmed ???Type multivitamin,jz-bmsg-lmzs rals 1 tab PO QDAY 01/12/18 02/15/24 Hi story (Complete Multivitamin tablet) ramipril 5 mg capsule 5 mg PO DAILY 11/27/22 12/26/24 Hi story amoxicillin 875 mg-potassium 1 tab PO BID 7 days #14 tabs 12/2612/26/24 Rx clavulanate 125 mg tablet prednisone 20 mg tablet 40 mg (2 x 20 mg) PO QDAY 5 days 0 12/26/24 12/26/24 Rx #10 tabs Have you fallen in the past year?: No Nurse's Note: Patient has cough and head congestion. Patient has pain in her ribs from coughing. Patient lost her voice. [facility] Medical History (Updated 12/26/24 @ 15:30 by Marquis Hernandez CONSULTING SOLUTION DIRECTOR, CONSULTING SOLUTION DIRECTOR-C) Complex endometrial hyperplasia without atypia Wears glasses Arthritis Non-smoker Simple endometrial hyperplasia without atypia Hypertension Surgical History (Updated 02/15/24 @ 09:[address] Danay Padron MD) H/O dilation and curettage bilateral carpal tunnel surgery gallbladder surgery History of tonsillectomy History of bilateral knee replacement Social History (Updated 02/15/24 @ 08:53 by Milena Britton) current occupational status: retired current occupation: [employer] Smoking Status: Never smoker alcohol intake: never substance use type: does not use caffeine: Yes what type of physical activity do you participate in: none seatbelt use: always do you feel safe at home: Yes additional social history: Mariely OCONNOR HPI Details: JERRI PITTS, is a 69 F who presents to the office today for cough and head congestion. This has been ongoing for 5-6 days. This is improving. She states her fever has resolved. ROS Const Constitutional: Positive for chills (resolved), fever(s) (resolved), abnormal sleep pattern (cough and wheezing keeps her up) and change in appetite (reduced appetite); No body ache, fatigue or headache(s) Eyes Eyes: No blurry vision, change in vision, double vision, irritation, discharge, vision loss, dry eyes, bulging eyes, floaters, visual disturbances, eye pain, Light sensitivity, spots in vision, tunnel vision or other ENT ENT: Positive for nosebleed/epistaxis, nasal congestion, nasal discharge (clear), hoarseness and sore throat; No ear or mastoid pain, ear discharge, ear pressure, tinnitus, dizziness/vertigo, nose pain, sinus pressure, sinus pain, post nasal drip, headache(s), facial pain, dental pain, difficulty swallowing, bad breath, lip swelling, mouth lesions, mouth pain, neck pain, tongue swelling or throat swelling Resp Respiratory: Positive for cough Cough: Yes productive, change in phlegm color (clear) and wheezing; No chest congestion, hemoptysis, pain on inspiration, shortness of breath, pain with cough or stridor Cardio Cardiology: No chest pain at rest, chest pain with exertion, shortness of breath, dyspnea on exertion or lightheadedness Gastro GI: Positive for abdominal pain (with coughing); No change in bowel habits, constipation, diarrhea, difficulty swallowing, nausea/dyspepsia or vomiting Genitourinary-Female: No burning urination or urinary frequency Musc Musculoskeletal: No joint pain or neck pain Skin Skin: No rash Neuro Neurology: No headache(s) or visual disturbances Psych Psychiatric: Positive for abnormal sleep pattern (cough and wheezing keeps her up) and Positive for change in appetite (reduced appetite) Endo Endocrine: No fatigue Aller/Imm Allergy/Immunologic: Positive for wheezing; No lip swelling, throat swelling or tongue swelling Exam Const General: cooperative, healthy appearing, comfortable and no acute distress Orientation: alert, awake and oriented x3 HENMT Head: normal to inspection and normocephalic Ears: hearing grossly normal bilaterally, external ears normal and TM's normal bilaterally Nose: external nose normal, nares normal, no nasal discharge and nasal discharge purulent bilaterally Face and sinus: normal facial exam and sinuses nontender Mouth: oral mucosae normal, lip normal, tongue normal, oropharynx normal and moist mucous membranes Throat: posterior oropharynx normal, tonsils normal, uvula midline (more content not included)... Normal [facility] Comprehensive Metabolic Prof ilon 09-29-2024 Albumin [Mass/Vol] 3.3 g/dL Normal 3.2-5.0 [facility] Comment on above: Order Comment: SAMMI TAYLOR TOLD HER ONLY THIS TEST FOR TODAY-NOT TO DO OTHERS Order Date: 09/29/24 Order Info: 0786-1 - CMP pediatri tube Performed By: #### L 500.4050 #### [facility] [address] [place], [place], [address] Albumin/Globulin [Mass ratio] 0.8 {ratio} Low 0.9-2.4 [facility] Comment on above: Order Comment: SAMMI TAYLOR TOLD HER ONLY THIS TEST FOR TODAY-NOT TO DO OTHERS Order Date: 09/29/24 Order Info: 0786-1 - CMP pediatri tube Performed By: #### L 500.4050 #### [facility] [address] [place], [place], [address] ALK P 110 U/L Normal 45-117 [facility] Comment on above: Order Comment: SAMMI TAYLOR TOLD HER ONLY THIS TEST FOR TODAY-NOT TO DO OTHERS Order Date: 09/29/24 Order Info: 0786-1 - CMP pediatri tube Performed By: #### L 500.4050 #### [facility] [address] [place], [place], [address] ALT [Catalytic activity/Vol] 16 U/L Normal 13-56 [facility] Comment on above: Order Comment: SAMMI TAYLOR TOLD HER ONLY THIS TEST FOR TODAY-NOT TO DO OTHERS Order Date: 09/29/24 Order Info: 0786-1 - CMP pediatri tube Performed By: #### L 500.4050 #### [facility] [address] [place], [address] AST [Catalytic activity/Vol] 16 U/L Normal 15-37 [facility] Comment on above: Order Comment: SAMMI TAYLOR TOLD HER ONLY THIS TEST FOR TODAY-NOT TO DO OTHERS Order Date: 09/29/24 Order Info: 0786-1 - CMP pediatri tube Performed By: #### L 500.4050 #### [facility] [address] [place], [place], [address] Bilirubin [Mass/Vol] 0.60 mg/dL Normal 0.20-1.00 [facility] Comment on above: Order Comment: SAMMI TAYLOR TOLD HER ONLY THIS TEST FOR TODAY-NOT TO DO OTHERS Order Date: 09/29/24 Order Info: 07-1 - CMP pediatri tube Result Comment: For patients on eltrombopag therapy, use of Dimension [place] TBIL is not recommended. Performed By: #### L 500.4050 #### [facility] [address] [place], [address] BUN/CRE 11.7 RATIO Normal 10-20 [facility] Comment on above: Order Comment: SAMMI TAYLOR TOLD HER ONLY THIS TEST FOR TODAY-NOT TO DO OTHERS Order Date: 09/29/24 Order Info: 07- - CMP pediatri tube Performed By: #### L 500.4050 #### [facility] [address] [place], [address] CA,Total 9.0 mg/dL Normal 8.5-10.1 [facility] Comment on above: Order Comment: SAMMI TAYLOR TOLD HER ONLY THIS TEST FOR TODAY-NOT TO DO OTHERS Order Date: 09/29/24 Order Info: 0786-1 - CMP pediatri tube Performed By: #### L 500.4050 #### [facility] [address] [place], [address] Chloride [Moles/Vol] 110 mmol/L High 98-107 [facility] Comment on above: Order Comment: SAMMI TAYLOR TOLD HER ONLY THIS TEST FOR TODAY-NOT TO DO OTHERS Order Date: 09/29/24 Order Info: 07-1 - CMP pediatri tube Performed By: #### L 500.4050 #### [facility] [address] [place], [place], [address] CO2 [Moles/Vol] 30.0 mmol/L Normal 21.0-32.0 [facility] Comment on above: Order Comment: SAMMI TAYLOR TOLD HER ONLY THIS TEST FOR TODAY-NOT TO DO OTHERS Order Date: 09/29/24 Order Info: 07- - CMP pediatri tube Performed By: #### L 500.4050 #### [facility] [address] [place], [place], [address] Creatinine [Mass/Vol] 0.94 mg/dL Normal 0.55-1.02 [facility] Comment on above: Order Comment: SAMMI TAYLOR TOLD HER ONLY THIS TEST FOR TODAY-NOT TO DO OTHERS Order Date: 09/29/24 Order Info: 785-11 - CMP pediatri tube Result Comment: The validity of the calculated GFR GFRAA in patients over 70 years has not been determined. Clinical correlation is essential. Performed By: #### L 500.4050 #### [facility] [address] [place], [place], [address] EST GFR - AA 75 mL/min Normal >60 [facility] Comment on above: Order Comment: SAMMI TAYLOR TOLD HER ONLY THIS TEST FOR TODAY-NOT TO DO OTHERS Order Date: 09/29/24 Order Info: 07- - CMP pediatri tube Result Comment: Afri can [facility] GFR Calc Performed By: #### L 500.4050 #### [facility] [address] [place], [address] GAP 1 Low 5-15 [facility] Comment on above: Order Comment: SAMMI TAYLOR TOLD HER ONLY THIS TEST FOR TODAY-NOT TO DO OTHERS Order Date: 09/29/24 Order Info: 07- - CMP pediatri tube Performed By: #### L 500.4050 #### [facility] [address] [place], [place], [address] GFR/1.73 sq M.predicted among non-blacks MDRD (S/P/Bld) [Vol rate/Area] 62 mL/min/{1.73_m2} Normal >60 [facility] Comment on above: Order Comment: SAMMI TAYLOR TOLD HER ONLY THIS TEST FOR TODAY-NOT TO DO OTHERS Order Date: 09/29/24 Order Info: 0786-1 - CMP pediatri tube Result Comment: Non- GFR Calc Performed By: #### L 500.4050 #### [facility] [address] [place], [place], [address] [phone] Globulin (S) [Mass/Vol] 4.2 g/dL Normal 2.2-4.2 [facility] Comment on above: Order Comment: SAMMI TAYLOR TOLD HER ONLY THIS TEST FOR TODAY-NOT TO DO OTHERS Order Date: 09/29/24 Order Info: 0786-1 - CMP pediatri tube Performed By: #### L 500.4050 #### [facility] [address] [place], [place], [address] [phone] Glucose [Mass/Vol] 93 mg/dL Normal 74-106 [facility] Comment on above: Order Comment: SAMMI TAYLOR TOLD HER ONLY THIS TEST FOR TODAY-NOT TO DO OTHERS Order Date: 09/29/24 Order Info: 0786-1 - CMP pediatri tube Performed By: #### L 500.4050 #### [facility] [address] [place], [place], [address] [phone] Potassium [Moles/Vol] 4.2 mmol/L Normal 3.5-5.1 [facility] Comment on above: Order Comment: SAMMI TAYLOR TOLD HER ONLY THIS TEST FOR TODAY-NOT TO DO OTHERS Order Date: 09/29/24 Order Info: 0786-1 - CMP pediatri tube Performed By: #### L 500.4050 #### [facility] [address] [place], [address] Sodium [Moles/Vol] 140 mmol/L Normal 136-145 [facility] Comment on above: Order Comment: SAMMI TAYLOR TOLD HER ONLY THIS TEST FOR TODAY-NOT TO DO OTHERS Order Date: 09/29/24 Order Info: 0786-1 - CMP pediatri tube Performed By: #### L 500.4050 #### [facility] [address] [place], [place], [address] T PROT 7.5 g/dL Normal 6.4-8.2 [facility] Comment on above: Order Comment: PER P T- TOLD HER ONLY THIS TEST FOR TODAY-NOT TO DO OTHERS Order Date: 09/29/24 Order Info: 0786-1 - CMP pediatri tube Performed By: #### L 500.4050 #### [facility] [address] [place], [place], [address] Urea nitrogen [Mass/Vol] 11 mg/dL Normal 7-18 [facility] Comment on above: Order Comment: PER P T- TOLD HER ONLY THIS TEST FOR TODAY-NOT TO DO OTHERS Order Date: 09/29/24 Order Info: 0786-1 - CMP pediatri tube Performed By: #### L 500.4050 #### [facility] [address] [place], [address] Dexa Bone Density Studyon Dexa Bone Density Study [facility] Imaging Services [address] [place] [address] Dexa Bone Density Study MR#: [id number] Acct: [id number] Name: JERRI PITTS Rep #: [id number] : 1955 F 69 From: Clarke weinstein MD PCP: Dr. Augusta Mcintosh MD Status: [facility] Study: Dexa Bone Density Study Date of Exam: 08/18/24 Exam# [id number] Ordering Dr: Danay Padron [id number] STUDY: DUAL ENERGY X-RAY ABSORPTIOMETRY / DXA REASON FOR EXAM: Female, 69 years old. Postmenopausal TECHNIQUE: Bone Mineral Density (BMD) measurements of lumbar spine and bilateral hips were obtained. COMPARISON: Comparison is made with prior study April 03, 2021. FINDINGS: Lumbar Spine (L1-L4): g/cm2 (1.168) / T-score (1.4) / Z-score (3.5) Findings are suggestive of normal bone density with a low fracture risk. Left Femur Total: g/cm2 (1.066) / T-score (1.0) / Z-score (2.6) Left Femoral Neck: g/cm2 (0.888) / T-score (0.4) / Z-score (2.) Right Femur Total: g/cm2 (0.977) / T-score (0.3) / Z-score (1.9) Right Femoral Neck: g/cm2 (0.875) / T-score (0.2) / Z-score (2.1) The T-Scores on the most recent prior examination were: Lumbar Spine (L1-L4): There has been improvement of bone density since the previous examination. Left Femur Total: which represents a worsening of . Right Femur Total: which represents a worsening of 10.8%. BD/Dexa Bone Density Study IMPRESSION: The patient is considered normal as outlined below according to World Ambrose Organization (WHO) criteria with a low fracture risk. There has been worsening of bone density since the previous examination. Reference Information: The T-score is the number of standard deviations above or below the standard which is normal for young adults at their peak bone mineral density. The World Health Organization (WHO) interprets the T-scores as follows: Above -1 Normal bone density Between -1 and -2.5 Osteopenia Equal to / or below -2.5 Osteoporosis As a practical clinical guideline, osteopenia may be graded as follows: Mild -1 through -1.5 Moderate -1.6 through -2.0 Severe -2.1 through -2.4 The Z-score is the number of standard deviations above or below age-matched controls. A Z-score of less than -1.5 would be considered abnormal. References: 1. NIH Osteoporosis and Related Bone Diseases www osteo.org 2. International Society for Clinical Densitometry www iscd.org 3. National Osteoporosis Foundation www nof.org Electronically Signed: Clarke Sim MD at 12:28 EDT , CC: Dr. Augusta Mcintosh MD; Dr. Danay Padron MD Edge Stainer Machine: Signed Normal [facility] SCRN MAMM (CAD)W/LEXA BILATo n 08-18-2024 SCRN MAMM (CAD)W/LEXA BILAT [facility] Imaging Services [address] [place] [address] SCRN MAMM (CAD)W/LEXA BILAT MR#: [id number] Acct: [id number] Name: JERRI PITTS Rep #: [id number] : 1955 F 69 From: Clarke weinstein MD PCP: Dr. Augusta Mcintosh MD Status: [facility] Study: SCRN MAMM (CAD)W/LEXA BILAT Date of Exam: 07/25 05/16 Exam# [id number] Ordering Dr: Danay Padron [id number] MAMMOGRAPHY - BILATERAL SCREENING REASON FOR EXAM: Female, 69 years old. Routine annual screening examination. PERTINENT HISTORY: Non-contributory. TECHNIQUE: Digital bilateral breast lexa (3D mammographic acquisition) in the CC and MLO projections. 2-D mediolateral oblique (MLO) and craniocaudad (CC) views of both breasts were obtained. CAD: Full Field Digital Mammography with Computer Added Detection was performed. COMPARISON: Comparison is made with prior study dated July 20, 2023 and June 12, 2022. FINDINGS: Breast Composition: There are scattered areas of fibroglandular density. There are no dominant masses or suspicious calcifications. No other significant abnormalities are identified. There has been no significant change since the prior study. BI/SCRN MAMM (CAD)W/LEXA BILAT IMPRESSION: Stable bilateral screening mammogram. Yearly follow-up mammogram recommended. (A) ASSESSMENT CATEGORY: BIRADS Category 1: Negative. A letter regarding these results will be sent to the patient by the facility within 30 days. Approximately 10% of breast cancers are not detected by mammography. A normal mammogram should not delay biopsy of a clinically suspicious abnormality. [id number] Electronically Signed: Clarke Sim MD at 9:15 EDT , CC: Dr. Augusta Mcintosh MD; Dr. Danay Padron MD Edge Stainer Machine: Signed Normal [facility] Absolute lymphocyte countOrd ered By: Augusta Mcintosh on 03-22-2024 Lymphocytes Auto (Unsp spec) [#/Vol] 1.54 10*3/uL 0.83-4.51 [facility] Automated lymphocyte count a s percentage of total leukocytesOrdered By: Augusta Mcintosh on 03-22-2024 Lymphocytes/100 WBC Auto (Unsp spec) 25.2 % 19-41 [facility] Basophil percentageOrdered B y: Augusta Mcintosh on 03-22-2024 Basophils/100 WBC (Bld) 0.7 % 0-1 [facility] Bilirubin [Mass/Vol] 0.40 mg/dL 0.20-1.00 [facility] Comment on above: For patients on eltr ombopag therapy, use of Dimension [place] TBIL is not recommended. Chloride [Moles/Vol] 110 mmol/L 98-107 [facility] Cholesterol [Mass/Vol] 162 mg/dL <200 [facility] Comment on above: <200 mg/dL Desirable 200-240 mg/dL Borderline >240 mg/dL High Risk Eosinophils/100 WBC (Bld) 2.6 % 0-5 [facility] Glucose [Mass/Vol] 98 mg/dL 74-106 [facility] Hemoglobin (Bld) [Mass/Vol] 12.6 g/dL 12.0-15.0 [facility] Monocytes/100 WBC (Bld) 6.5 % 0-10 [facility] Neutrophils (Bld) [#/Vol] 3.9 10*3/uL 2.0-7.7 [facility] Neutrophils/100 WBC (Bld) 64.5 % 47-70 [facility] Potassium [Moles/Vol] 4.0 mmol/L 3.5-5.1 [facility] Protein [Mass/Vol] 7.6 g/dL 6.4-8.2 [facility] Sodium [Moles/Vol] 142 mmol/L 136-145 [facility] Triglyceride [Mass/Vol] 117 mg/dL <199 [facility] Comment on above: The drugs N-Acetylcy steine and Metamizole may falsely depress this assay.Serum Triglycerides Reference Interval Normal <150 mg/dL Borderline high 150 - 199 mg/dL High 200 - 499 mg/dL Very High > or = 500 mg/dL WBC (Bld) [#/Vol] 6.1 10*3/uL 4.4-11.0 [facility] Determination of erythrocyte mean corpuscular volume (MCV)Ordered By: Augusta Mcintosh on 03-22-2024 MCV (RBC) [Entitic vol] 83.2 fL 81-99 [facility] Erythrocyte distribution wid th ratioOrdered By: Augusta Mcintosh on 03-22-2024 Erythrocyte distribution width (RBC) [Ratio] 15.4 % 11.6-14.6 [facility] Erythrocyte distribution wid th standard deviationOrdered By: Augusta Mcintosh on 03-22-2024 Erythrocyte distribution width (RBC) [Entitic vol] 46.7 fL 35.1-43.9 [facility] Hematocrit Auto (Bld) [Volum e fraction]Ordered By: Augusta Mcintosh on 03-22-2024 Hematocrit (Bld) [Volume fraction] 40.5 % 37-47 [facility] Immature granulocytes/100 WB C Auto (Bld)Ordered By: Augusta Mcintosh on 03-22-2024 Immature granulocytes/100 WBC (Bld) 0.500 % 0.0-0.9 [facility] Comment on above: IG% - Immature Granu locytes (promyelocytes, myelocytes and metamyelocytes) > 1% indicates that a LEFT SHIFT is Present. Laboratory - Chemistry and C hemistry - challengeOrdered By: Augusta Mcintosh on 03-22-2024 Albumin/Globulin [Mass ratio] 0.8 {ratio} 0.9-2.4 [facility] ALP [Catalytic activity/Vol] 106 U/L 45-117 [facility] ALT [Catalytic activity/Vol] 20 U/L 13-56 [facility] Cholesterol in HDL [Mass/Vol] 53 mg/dL >40 [facility] Comment on above: The drugs N-Acetylcy steine and Metamizole may falsely depress this assay. Reference Range HDL <40 mg/dL Low HDL Cholesterol HDL >or= 60 mg/dL High HDL Cholesterol Cholesterol in LDL [Mass/Vol] 86 mg/dL 0-130 [facility] CO2 [Moles/Vol] 29.0 mmol/L 21.0-32.0 [facility] Globulin (S) [Mass/Vol] 4.3 g/dL 2.2-4.2 [facility] Urea nitrogen/Creatinine [Mass ratio] 15.5 mg/mg 10-20 [facility] Laboratory - Hematology and Cell countsOrdered By: Augusta Mcintosh on 03-22-2024 MCH (RBC) [Entitic mass] 25.9 pg 27.0-32.0 [facility] MCHC (RBC) [Mass/Vol] 31.1 g/dL 32-36 [facility] Nucleated RBC/100 WBC (Bld) [Ratio] 0 % 0-5 [facility] Platelet mean volume (Bld) [Entitic vol] 10.0 fL 6.2-12.0 [facility] Platelets (Bld) [#/Vol] 286 10*3/uL 150-450 [facility] No Panel InformationOrdered By: Augusta Mcintosh on 03-22-2024 Estimated GFR (MDRD) Amer 79 mL/min >60 [facility] Comment on above: GFR Calc Estimated GFR (MDRD) Non-Af Amer 65 mL/min >60 [facility] Comment on above: Non- GFR Calc Urine Microalbumin/Creatinine Ratio 14.9 mg/g CRE <30 [facility] VLDL Cholesterol 23 mg/dL 5-40 [facility] RBC Auto (Bld) [#/Vol]Ordere d By: Augusta Mcintosh on 03-22-2024 RBC (Bld) [#/Vol] 4.87 10*6/uL 4.2-5.4 [facility] Serum or plasma calcium radha urement (mass/volume)Ordered By: Augusta Mcintosh on 03-22-2024 Calcium [Mass/Vol] 8.9 mg/dL 8.5-10.1 [facility] Serum or plasma creatinine m easurement (mass/volume)Ordered By: Augusta Mcintosh on 03-22-2024 Creatinine [Mass/Vol] 0.90 mg/dL 0.55-1.02 [facility] Comment on above: The validity of the calculated GFR & GFRAA in patients over 70 years has not been determined. Clinical correlation is essential. Serum or plasma thyroid stim ulating hormone (TSH) measurement (units/volume)Ordered By: Augusta Mcintosh on 03-22-2024 TSH Qn 2.63 uIU/mL 0.358-3.74 [facility] Serum or plasma urea nitroge n measurement (mass/volume)Ordered By: Augusta Mcintosh on 03-22-2024 Urea nitrogen [Mass/Vol] 14 mg/dL 7-18 [facility] Thin prep Papanicolaou smear with manual screeningOrdered By: Augusta Mcintosh on 03-22-2024 Thin prep Papanicolaou smear with manual screening 3.3 g/dL 3.2-5.0 [facility] Thin prep Papanicolaou smear with manual screening 16 U/L 15-37 [facility] Thin prep Papanicolaou smear with manual screening 3 5-15 [facility] Thin prep Papanicolaou smear with manual screening 20.3 mg/L NO RANGE EST. [facility] Urine creatinine measurement (mass/volume)Ordered By: Augusta Mcintosh on 03-22-2024 Creatinine (U) [Mass/Vol] 136.00 mg/dL NO RANGE EST. [facility] Whole blood hemoglobin A1c/t otal hemoglobin ratio (mass fraction)Ordered By: Augusta Mcintosh on 03-22-2024 HbA1c (Bld) [Mass fraction] 6.0 % 3.8-5.6 [facility] Comment on above: Normal < 5.7 % Predi abetic 5.7 - 6.4 % Diabetic >or= 6.5 % Please note range changes. Absolute lymphocyte countOrd ered By: Augusta Mcintosh on 09-23-2023 Lymphocytes Auto (Unsp spec) [#/Vol] 1.29 10*3/uL 0.83-4.51 [facility] Basophil percentageOrdered B y: Augusta Mcintosh on 09-23-2023 Basophils/100 WBC (Bld) 0.7 % 0-1 [facility] Bilirubin [Mass/Vol] 0.40 mg/dL 0.20-1.00 [facility] Comment on above: For patients on eltr ombopag therapy, use of Dimension [place] TBIL is not recommended. Chloride [Moles/Vol] 106 mmol/L 98-107 [facility] Eosinophils/100 WBC (Bld) 2.5 % 0-5 [facility] Glucose [Mass/Vol] 107 mg/dL 74-106 [facility] Comment on above: Fasting Glucose resu lt from 100 to 125 mg/dL suggests IMPAIRED HOMEOSTASIS per A.D.A. criteria. Neutrophils (Bld) [#/Vol] 4.2 10*3/uL 2.0-7.7 [facility] Neutrophils/100 WBC (Bld) 68.8 % 47-70 [facility] Potassium [Moles/Vol] 4.0 mmol/L 3.5-5.1 [facility] Protein [Mass/Vol] 7.4 g/dL 6.4-8.2 [facility] Sodium [Moles/Vol] 140 mmol/L 136-145 [facility] WBC (Bld) [#/Vol] 6.1 10*3/uL 4.4-11.0 [facility] Blood erythrocytes count (nu mber/volume)Ordered By: Augusta Mcintosh on 09-23-2023 RBC (Bld) [#/Vol] 4.91 10*6/uL 4.2-5.4 [facility] Blood hemoglobin measurement (mass/volume)Ordered By: Augusta Mcintosh on 09-23-2023 Hemoglobin (Bld) [Mass/Vol] 12.8 g/dL 12.0-15.0 [facility] Blood lymphocytes/100 leukoc ytesOrdered By: Augusta Mcintosh on 09-23-2023 Lymphocytes/100 WBC (Bld) 21.3 % 19-41 [facility] Blood monocytes/100 leukocyt esOrdered By: Augusta Mcintosh on 09-23-2023 Monocytes/100 WBC (Bld) 6.4 % 0-10 [facility] Blood platelet mean volumeOr dered By: Augusta Mcintosh on 09-23-2023 Platelet mean volume (Bld) [Entitic vol] 9.9 fL 6.2-12.0 [facility] Determination of erythrocyte mean corpuscular volume (MCV)Ordered By: Augusta Mcintosh on 09-23-2023 MCV (RBC) [Entitic vol] 84.5 fL 81-99 [facility] Hematocrit Auto (Bld) [Volum e fraction]Ordered By: Augusta Mcintosh on 09-23-2023 Hematocrit (Bld) [Volume fraction] 41.5 % 37-47 [facility] Laboratory - Chemistry and C hemistry - challengeOrdered By: Augusta Mcintosh on 09-23-2023 ALP [Catalytic activity/Vol] 110 U/L 45-117 [facility] ALT [Catalytic activity/Vol] 20 U/L 13-56 [facility] CO2 [Moles/Vol] 30.0 mmol/L 21.0-32.0 [facility] Globulin (S) [Mass/Vol] 4.0 g/dL 2.2-4.2 [facility] Urea nitrogen/Creatinine [Mass ratio] 11.4 mg/mg 10-20 [facility] Laboratory - Hematology and Cell countsOrdered By: Augusta Mcintosh on 09-23-2023 Erythrocyte distribution width (RBC) [Entitic vol] 47.5 fL 35.1-43.9 [facility] Erythrocyte distribution width (RBC) [Ratio] 15.4 % 11.6-14.6 [facility] Immature granulocytes/100 WBC (Bld) 0.300 % 0.0-0.9 [facility] Comment on above: IG% - Immature Granu locytes (promyelocytes, myelocytes and metamyelocytes) > 1% indicates that a LEFT SHIFT is Present. MCH (RBC) [Entitic mass] 26.1 pg 27.0-32.0 [facility] Nucleated RBC/100 WBC (Bld) [Ratio] 0 % 0-5 [facility] MCHC Auto (RBC) [Mass/Vol]Or dered By: Augusta Mcintosh on 09-23-2023 MCHC (RBC) [Mass/Vol] 30.8 g/dL 32-36 [facility] No Panel InformationOrdered By: Augusta Mcintosh on 09-23-2023 Estimated GFR (MDRD) Amer 73 mL/min >60 [facility] Comment on above: GFR Calc Estimated GFR (MDRD) Non-Af Amer 61 mL/min >60 [facility] Comment on above: Non- GFR Calc Platelets bldOrdered By: Reyna Mcintosh on 09-23-2023 Platelets (Bld) [#/Vol] 312 10*3/uL 150-450 [facility] Serum or plasma albumin radha urement (mass/volume)Ordered By: Augusta Mcintosh on 09-23-2023 Albumin [Mass/Vol] 3.4 g/dL 3.2-5.0 [facility] Serum or plasma albumin/glob ulin mass ratioOrdered By: Augusta Mcintosh on 09-23-2023 Albumin/Globulin [Mass ratio] 0.8 {ratio} 0.9-2.4 [facility] Serum or plasma calcium radha urement (mass/volume)Ordered By: Augusta Mcintosh on 09-23-2023 Calcium [Mass/Vol] 9.1 mg/dL 8.5-10.1 [facility] Serum or plasma creatinine m easurement (mass/volume)Ordered By: Augusta Mcintosh on 09-23-2023 Creatinine [Mass/Vol] 0.97 mg/dL 0.55-1.02 [facility] Comment on above: The validity of the calculated GFR & GFRAA in patients over 70 years has not been determined. Clinical correlation is essential. Serum or plasma urea nitroge n measurement (mass/volume)Ordered By: Augusta Mcintosh on 09-23-2023 Urea nitrogen [Mass/Vol] 11 mg/dL 7-18 [facility] Thin prep Papanicolaou smear with manual screeningOrdered By: Augusta Mcintosh on 09-23-2023 Thin prep Papanicolaou smear with manual screening 15 U/L 15-37 [facility] Thin prep Papanicolaou smear with manual screening 4 5-15 [facility] Whole blood hemoglobin A1c/t otal hemoglobin ratio (mass fraction)Ordered By: Augusta Mcintosh on 09-23-2023 HbA1c (Bld) [Mass fraction] 5.8 % 3.8-5.6 [facility] Comment on above: Normal < 5.7 % Predi abetic 5.7 - 6.4 % Diabetic >or= 6.5 % Please note range changes. Whole blood hemoglobin A1c/t otal hemoglobin ratio (mass fraction)on 03-27-2022 HbA1c (Bld) [Mass fraction] 5.9 % 3.8-5.6 [facility] Work Phone: Comment on above: Normal < 5.7 % Predi abetic 5.7 - 6.4 % Diabetic >or= 6.5 % Please note range changes. Basophil percentageon 2021 Chloride [Moles/Vol] 105 mmol/L 98-107 [facility] Work Phone: Cholesterol [Mass/Vol] 144 mg/dL <200 [facility] Work Phone: Comment on above: <200 mg/dL Desirable 200-240 mg/dL Borderline >240 mg/dL High Risk Glucose [Mass/Vol] 110 mg/dL 74-106 [facility] Work Phone: Comment on above: Fasting Glucose resu lt from 100 to 125 mg/dL suggests IMPAIRED HOMEOSTASIS per A.D.A. criteria. Potassium [Moles/Vol] 4.0 mmol/L 3.5-5.1 [facility] Work Phone: Sodium [Moles/Vol] 138 mmol/L 136-145 [facility] Work Phone: Triglyceride [Mass/Vol] 156 mg/dL [facility] Work Phone: Comment on above: The drugs N-Acetylcy steine and Metamizole may falsely depress this assay.Serum Triglycerides Reference Interval Normal <150 mg/dL Borderline high 150 - 199 mg/dL High 200 - 499 mg/dL Very High > or = 500 mg/dL Laboratory - Chemistry and C hemistry - challengeon 01-14-2022 CO2 [Moles/Vol] 27.0 mmol/L 21.0-32.0 [facility] Work Phone: Urea nitrogen/Creatinine [Mass ratio] 11.8 mg/mg 10-20 [facility] Work Phone: No Panel Informationon 01-14 Estimated GFR (MDRD) Amer 76 mL/min >60 [facility] Work Phone: Comment on above: GFR Calc Estimated GFR (MDRD) Non-Af Amer 63 mL/min >60 [facility] Work Phone: Comment on above: Non- GFR Calc Serum or plasma calcium radha urement (mass/volume)on 01-14-2022 Calcium [Mass/Vol] 8.8 mg/dL 8.5-10.1 [facility] Work Phone: Serum or plasma cholesterol in HDL measurement (mass/volume)on 01-14-2022 Cholesterol in HDL [Mass/Vol] 39 mg/dL [facility] Work Phone: Comment on above: The drugs N-Acetylcy steine and Metamizole may falsely depress this assay. Reference Range HDL <40 mg/dL Low HDL Cholesterol HDL >or= 60 mg/dL High HDL Cholesterol Serum or plasma cholesterol in VLDL measurement (mass/volume)on 01-14-2022 Cholesterol in VLDL [Mass/Vol] 31 mg/dL 5-40 [facility] Work Phone: Serum or plasma creatinine m easurement (mass/volume)on 01-14-2022 Creatinine [Mass/Vol] 0.94 mg/dL 0.55-1.02 [facility] Work Phone: Comment on above: The validity of the calculated GFR & GFRAA in patients over 70 years has not been determined. Clinical correlation is essential. Serum or plasma low density lipoprotein (LDL) cholesterol measurement (mass/volume)on 01-14-2022 Cholesterol in LDL [Mass/Vol] 74 mg/dL 0-130 [facility] Work Phone: Serum or plasma urea nitroge n measurement (mass/volume)on 01-14-2022 Urea nitrogen [Mass/Vol] 11 mg/dL 7-18 [facility] Work Phone: Thin prep Papanicolaou smear with manual screeningon 01-14-2022 Thin prep Papanicolaou smear with manual screening 6 5-15 [facility] Work Phone: HISTORY PHYSICALon 8 HISTORY PHYSICAL HNO ID: [id number] thor: Lisa Pakervice: General SurgeryAuthor Type: PhysicianType: HANDPFiled: 07/16/2018 7:15 AMNote Text:HISTORY AND PHYSICAL?Jerri Valenzuela Hong1955?REFERRING PHYSICIAN: Self?CHIEF COMPLAINT: Consult (10yr repeat colonoscopy)?HPI: The patient is a 63 year old female referred for endoscopy. Jerrinotes no history of colon complaints.?The patient notes no history of upper GI complaints.?Jerri has undergone prior endoscopy. She had a normal colonoscopy 10years previously, on July 11, 2018. She returns for follow-up.Normal risk screening endoscopy. She has no family history of coloncancer?PAST MEDICAL HISTORYPAST MEDICAL HISTORYDiagnosis Date- Carpal tunnel syndrome ?? left wrist- HTN (hypertension) ?- Osteoarthrosis, unspecified whether generalized or localized, otherspecified sites ?? knees??PAST SURGICAL HISTORYPAST SURGICAL HISTORYProcedure Laterality Date- CARPAL TUNNEL ? 2012? left wrist surgery- CARPAL TUNNEL RIGHT WRIST ? 2007- COLONOSCOP W/ OR W/O [facility] SPEC ? 07/11/2008? Normal Colonoscopy- REMOVAL GALLBLADDER ? 1988? Cholecystectomy- REMOVAL OF TONSILS,<12 Y/O ? ?? Tonsillectomy- TOTAL KNEE REPLACEMENT ? 03/29? 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 Smokeless tobacco: Never Used Alcohol use: No Drug use: No Sexual activity: Yes Partners with: Male control/protection: Vasectomy?Other Topics ConcernMilitary Service NoBlood Transfusions NoCaffeine Concern NoOccupational Exposure NoHobby Hazards NoSleep Concern NoStress Concern NoWeight Concern NoSpecial Diet NoBack Care NoExercise NoBike Helmet NoSeat Belt NoSelf-Exams No??FAMILY HISTORY:FAMILY HISTORYFAMILY HISTORYProblem Relation Age of Onset- Alzheimer's Disease Mother ?? ? at 90yrs of age- unknown father's history [OTHER] Other ?REVIEW OF SYMPTOMS: The review of systems data was entered by the nurse and reviewed by me?Nursing Notes:Hunter Samuel LPN 06/10/2018 10:39 AM SignedREVIEW OF SYSTEMS: General: The patient denies fatigue, denies weight loss, deniesweight gain, denies feeling hot, and denies feelings of cold. Eyes: The patient denies glaucoma, denies eye injury/surgery, wearsglasses or contacts. Ear/Nose/Throat: The patient denies allergies, denies hayfever,denies ear infections, and denies bloody noses. Cardiovascular: The patient denies chest pain, denies heart disease,NOTES high blood pressure,denies cardiac stent, denies prior heart attack,denies irregular heart beat, denies high cholesterol, denies poorcirculation, denies heart failure, other cardiac issues, deniesclaudication, denies cold feet, denies peripheral arterial stent. Respiratory: The patient denies tuberculosis, denies pneumonia,denies frequent cough, denies pulmonary embolism, denies shortness ofbreath, and denies coughing up blood. Gastrointestinal: The patient denies difficulty swallowing, deniesacid reflux, denies ulcers, denies vomiting, denies jaundice/hepatitis,NOTES gallbladder problems, denies black or tarry stools, NOTEShemorrhoids, denies bleeding from rectum, denies diverticulitis, deniesconstipation, denies diarrhea, denies loss of stool control, and denieshernias. Kidney/Bladder: The patient denies kidney stones, denies urineinfections, and denies bloody urine. Skin: The patient denies a history of skin cancer, deniesbleeding/changing moles, and denies a history of skin rash. Neurologic: The patient denies a history of epilepsy/convulsions,rachel es headaches, denies head/spinal injuries, and denies stroke/TIA. Psychiatric: The patient denies psychiatric medications, deniesdepression, and denies voices, denies substance abuse. Endocrine: The patient denies thyroid disorders, denies diabetes,and denies hormonal problems. Hematologic: The patient denies a history of bruising, deniesbleeding, and denies anemia, denies blood clots. Infections: The patient NOTES a history of measles and mumps, deniesrheumatic fever, and denies sexually transmitted diseases. Musculoskeletal: The patient denies back pain/injury, denies backproblems, denies sciatica, NOTES knee/foot trouble, NOTES arthritis, ordenies gout.??When was patient's last Mammogram screening? 04/09? Last Colonoscopy: 2007?Hunter Samuel LPNPHYSICAL EXAMINATION:?General: The patient is 63 year old female, well nourished, well hydratedin no acute distress. The patient is oriented to time, place, and person.?VITALS: Blood pressure 134/86, pulse 72, height 154.9 cm (5' 1), qjemdx83.6 kg (215 lb 3.2 oz), last menstrual period 11/19/2007. Body mass indexis 40.66 kg/m?.?HEENT: Normal cephalic, ataumatic, pupils are equally round, sclera areanicteric, mucous membranes are moist, oropharynx is clear. Neck has nomasses, asymmetry or lymphadenopathy. Thyroid is unremarkable.?Respiratory : Clear to auscultation and percussion. Normal respiratoryexcursion and pattern.?Cardiac: Examination is regular rate and rhythm.?Abdominal exam: Soft, nontender, with no palpable masses. Nohepatosplenomegaly. No palpable hernias.?Rectal exam: exam deferred?Extremities: no clubbing, cyanosis or edema. No adenopathy.?Other:?LABORA TORY VALUES: As Noted?RADIOLOGIC STUDIES: As Noted?AssessmentIMPRESSIO N: screening colonoscopy?PLAN: I plan to perform lower endoscopy. We discussed the risks andbenefits of the planned endoscopy. I have informed the patient thatcomplications can occur including failure to complete the endoscopy andperforation. The patient had the opportunity to ask questions concerningthe planned endoscopy. My staff has also explained the procedure to thepatient in understandable terms and has given the patient printed materialconcerning the procedure. The patient freely consents to surgery.?I plan to use magnesium citrate and Dulcolax for bowel preparation forendoscopy???Diagnoses: (Z12.11) Special screening for malignant neoplasm of colon(primary encounter diagnosis)??Return to Clinic: The patient is instructed to follow-up with me after thetesting has been completed.? Lisa Reno MD [facility] NURSING PROGon 07-16-2018 Protein mass conc HNO ID: [id number] thor: Madiha Wells (RnSELAM Baroneervice: NursingAuthor Type: Registered NurseType: Nursing Progress NoteFiled: 07/16/2018 9:25 AMNote Text:Patient did not experience a fall prior to discharge.Patient did not experience a burn prior to discharge.Madiha Blanchard RN [facility] Protein mass conc HNO ID: [id number] thor: SELAM Andrade Rnervice: NursingAuthor Type: Registered NurseType: Nursing Progress NoteFiled: 07/16/2018 8:53 AMNote Text:Dr. Reno at beside with patient and patient's . Questionsanswered.Shirley Blanchard RN [facility] Protein mass conc HNO ID: [id number] thor: Balwinder Crawley Rnice: NursingAuthor Type: Registered NurseType: Nursing Progress NoteFiled: 07/16/2018 8:40 AMNote Text:Patient did not experience a fall within the Intraoperative area.Patient did not experience a burn within the Intraoperative area.Iliana Olvera RN [facility] Protein mass conc HNO ID: [id number] thor: Balwinder Bernstein Rnice: (none)Author Type: Registered NurseType: Nursing Progress NoteFiled: 07/16/2018 9:00 AMNote Text:[facility] PRE-OP NURSING HAND OFF NOTESBAR Hand off given to Iliana Olvera RN.Hand off was communicated verbally and at the patient's bedside and allquestions were answered. FALLS/BURNSPatient did not experience a fall within the Preoperative area.Patient did not experience a burn within the Preoperative area.Madyson Cowan RN [facility] PT EDon 07-16-2018 PT ED HNO ID: [id number] thor: Balwinder Andrade Rnice: NursingAuthor Type: Registered NurseType: Patient EducationFiled: 07/16/2018 9:09 AMNote Text:POST OP LEARNING RESPONSEINSTRUCTION PROVIDED TO: Patient and SpouseMETHOD OF INSTRUCTION: Written instruction - handoutsVerbal instructionPATIENT / FAMILY RESPONSE: Verbalizes understanding of: INFECTIONMANAGEMENT-Signs and symptoms of an infection and importance ofcontacting the physicianPAIN MANAGEMENT-Effective strategies to manage pain in addition to painmedicationPOST-OPERAT MAREK INSTRUCTIONS-Correct actions to take to reducepostoperative complicationsPATIENT SAFETY PRINCIPLESWORSENING CONDITION-Signs and symptoms of a worsening condition thatwarrant a call to the physicianFOLLOW-UP PLAN: Patient instructed to call with any further issuesFollow up phone call.SUPPLEMENTAL MATERIAL: Procedure discharge instructionsREFERRAL (RECOMMENDATION): NoneElectronically Signed By: Madiha Blanchard RN In Department:AMBULATORY SURGERY [facility] PT ED HNO ID: [id number] thor: Madyson (Rn) Chapo, RNService: (none)Author Type: Registered NurseType: Patient EducationFiled: 07/16/2018 7:10 AMNote Text:PRE OP LEARNING ASSESSMENTPROCEDURE/SURGE RY: GI PROCEDURES: ColonoscopyREADINESS TO LEARNCOGNITIVE ABILITY: Alert and orientedMOTIVATION TO LEARN: EagerFAMILY SUPPORT: High - Very involved in pt carePATIENT LEARNS BEST BY: Multiple MethodsFACTORS AFFECTING LEARNING: NonePHYSICAL LIMITATIONS AFFECTING LEARNING: NoneElectronically Signed By: Madyson Cowan RN In Department: AMBULATORYSURGERY [facility] PROGRESSon 06-12-2018 Protein mass conc HNO ID: [id number] thor: Lisa Pakervice: (none)Author Type: PhysicianType: Progress NotesFiled: 06/12/2018 7:52 AMNote Text:HISTORY AND PHYSICALJerri Pitts1955REFERRING PHYSICIAN: SelfCHIEF COMPLAINT: Consult (10yr repeat colonoscopy)HPI: The patient is a 63 year old female referred for endoscopy. Nancynotes no history of colon complaints.The patient notes no history of upper GI complaints.Jerri has undergone prior endoscopy. She had a normal colonoscopy 10years previously, on July 11, 2018. She returns for follow-up.Normal risk screening endoscopy. She has no family history of coloncancerPAST MEDICAL HISTORYDiagnosis Date- Carpal tunnel syndrome left wrist- HTN (hypertension)- Osteoarthrosis, unspecified whether generalized or localized, otherspecified sites kneesPAST SURGICAL HISTORYProcedure Laterality Date- CARPAL TUNNEL 2012 left wrist surgery- CARPAL TUNNEL RIGHT WRIST 2007- COLONOSCOP W/ OR W/O [facility] SPEC 07/11/2008 Normal Colonoscopy- REMOVAL GALLBLADDER 1988 Cholecystectomy- REMOVAL OF TONSILS,<10 Y/O Tonsillectomy- TOTAL KNEE REPLACEMENT 03/29 Knee replacement, total-bilateralCurrent Outpatient Prescriptions:indapamide (LOZOL) 1.25 mg tablet Take 1.25 mg by mouth once daily.THERAPEUTIC MULTIVITAMIN TAB Take one(1) tablet daily.quinapril (ACCUPRIL) 10 mg tabletAMOXICILLIN, BULK, MISC as needed.No current facility-administered medications for this visit.ALLERGIES: Patient has no known allergies.PERSONAL HISTORY: Social History Marital status: Spouse name: mariely Years of education: Number of children: 1Occupational HistoryOccupation Employer Commentretired [employer]*elections speciali* [employer] part timeSocial History Main Topics Smoking status: Never Smoker Smokeless tobacco: Never Used Alcohol use: No Drug use: No Sexual activity: Yes Partners with: Male control/protection: VasectomyOther Topics ConcernMilitary Service NoBlood Transfusions NoCaffeine Concern NoOccupational Exposure NoHobby Hazards NoSleep Concern NoStress Concern NoWeight Concern NoSpecial Diet NoBack Care NoExercise NoBike Helmet NoSeat Belt NoSelf-Exams NoFAMILY HISTORY:FAMILY HISTORYProblem Relation Age of Onset- Alzheimer's Disease Mother at 90yrs of age- unknown father's history [OTHER] Other deceasedREVIEW OF SYMPTOMS: The review of systems data was entered by the nurse and reviewed by Ana Notes:Hunter Samuel LPN 06/10/2018 10:39 AM SignedREVIEW OF SYSTEMS: General: The patient denies fatigue, denies weight loss, deniesweight gain, denies feeling hot, and denies feelings of cold. Eyes: The patient denies glaucoma, denies eye injury/surgery, wearsglasses or contacts. Ear/Nose/Throat: The patient denies allergies, denies hayfever,denies ear infections, and denies bloody noses. Cardiovascular: The patient denies chest pain, denies heart disease,NOTES high blood pressure,denies cardiac stent, denies prior heart attack,denies irregular heart beat, denies high cholesterol, denies poorcirculation, denies heart failure, other cardiac issues, deniesclaudication, denies cold feet, denies peripheral arterial stent. Respiratory: The patient denies tuberculosis, denies pneumonia,denies frequent cough, denies pulmonary embolism, denies shortness ofbreath, and denies coughing up blood. Gastrointestinal: The patient denies difficulty swallowing, deniesacid reflux, denies ulcers, denies vomiting, denies jaundice/hepatitis,NOTES gallbladder problems, denies black or tarry stools, NOTEShemorrhoids, denies bleeding from rectum, denies diverticulitis, deniesconstipation, denies diarrhea, denies loss of stool control, and denieshernias. Kidney/Bladder: The patient denies kidney stones, denies urineinfections, and denies bloody urine. Skin: The patient denies a history of skin cancer, deniesbleeding/changing moles, and denies a history of skin rash. Neurologic: The patient denies a history of epilepsy/convulsions,rachel es headaches, denies head/spinal injuries, and denies stroke/TIA. Psychiatric: The patient denies psychiatric medications, deniesdepression, and denies voices, denies substance abuse. Endocrine: The patient denies thyroid disorders, denies diabetes,and denies hormonal problems. Hematologic: The patient denies a history of bruising, deniesbleeding, and denies anemia, denies blood clots. Infections: The patient NOTES a history of measles and mumps, deniesrheumatic fever, and denies sexually transmitted diseases. Musculoskeletal: The patient denies back pain/injury, denies backproblems, denies sciatica, NOTES knee/foot trouble, NOTES arthritis, ordenies gout.When was patient's last Mammogram screening? 04/09 Last Colonoscopy: 2007Hunter Samuel LPNPHYSICAL EXAMINATION:General: The patient is 63 year old female, well nourished, well hydratedin no acute distress. The patient is oriented to time, place, and person.VITALS: Blood pressure 134/86, pulse 72, height 154.9 cm (5' 1), seynwn01.6 kg (215 lb 3.2 oz), last menstrual period 11/19/2007. Body mass indexis 40.66 kg/m?.HEENT: Normal cephalic, ataumatic, pupils are equally round, sclera areanicteric, mucous membranes are moist, oropharynx is clear. Neck has nomasses, asymmetry or lymphadenopathy. Thyroid is unremarkable.Respiratory: Clear to auscultation and percussion. Normal respiratoryexcursion and pattern.Cardiac: Examination is regular rate and rhythm.Abdominal exam: Soft, nontender, with no palpable masses. Nohepatosplenomegaly. No palpable hernias.Rectal exam: exam deferredExtremities: no clubbing, cyanosis or edema. No adenopathy.Other:LABORATO RY VALUES: As NotedRADIOLOGIC STUDIES: As NotedAssessmentIMPRESSION : screening colonoscopyPLAN: I plan to perform lower endoscopy. We discussed the risks andbenefits of the planned endoscopy. I have informed the patient thatcomplications can occur including failure to complete the endoscopy andperforation. The patient had the opportunity to ask questions concerningthe planned endoscopy. My staff has also explained the procedure to thepatient in understandable terms and has given the patient printed materialconcerning the procedure. The patient freely consents to surgery.I plan to use magnesium citrate and Dulcolax for bowel preparation forendoscopyDiagnoses: (Z12.11) Special screening for malignant neoplasm of colon(primary encounter diagnosis)Return to Clinic: The patient is instructed to follow-up with me after thetesting has been completed. Lisa Reno MD [facility] CNOVon 06-10-2018 CNOV Office Visit (GENSWS) JERRI PITTS ([id number]) 1955 [facility] Time Provider Department06/10/18 10:00 AM LISA RENO During your visit today, we recorded the following information about you: Pulse Blood pressure Weight Height 72/minute 134/86 97.6 kg 1.549 Bill Samuel LPN 06/10/2018 10:39 AM SignedREVIEW OF SYSTEMS: General: The patient denies fatigue, denies weight loss, denies weightgain, denies feeling hot, and denies feelings of cold. Eyes: The patient denies glaucoma, denies eye injury/surgery, wearsglasses or contacts. Ear/Nose/Throat: The patient denies allergies, denies hayfever, deniesear infections, and denies bloody noses. Cardiovascular: The patient denies chest pain, denies heart disease,NOTES high blood pressure,denies cardiac stent, denies prior heart attack,denies irregular heart beat, denies high cholesterol, denies poor circulation,denies heart failure, other cardiac issues, denies claudication, denies coldfeet, denies peripheral arterial stent. Respiratory: The patient denies tuberculosis, denies pneumonia, deniesfrequent cough, denies pulmonary embolism, denies shortness of breath, anddenies coughing up blood. Gastrointestinal: The patient denies difficulty swallowing, denies acidreflux, denies ulcers, denies vomiting, denies jaundice/hepatitis, NOTESgallbladder problems, denies black or tarry stools, NOTES hemorrhoids, deniesbleeding from rectum, denies diverticulitis, denies constipation, deniesdiarrhea, denies loss of stool control, and denies hernias. Kidney/Bladder: The patient denies kidney stones, denies urineinfections, and denies bloody urine. Skin: The patient denies a history of skin cancer, deniesbleeding/changing moles, and denies a history of skin rash. Neurologic: The patient denies a history of epilepsy/convulsions, deniesheadaches, denies head/spinal injuries, and denies stroke/TIA. Psychiatric: The patient denies psychiatric medications, deniesdepression, and denies voices, denies substance abuse. Endocrine: The patient denies thyroid disorders, denies diabetes, anddenies hormonal problems. Hematologic: The patient denies a history of bruising, denies bleeding,and denies anemia, denies blood clots. Infections: The patient NOTES a history of measles and mumps, deniesrheumatic fever, and denies sexually transmitted diseases. Musculoskeletal: The patient denies back pain/injury, denies backproblems, denies sciatica, NOTES knee/foot trouble, NOTES arthritis, or deniesgout.When was patient's last Mammogram screening? 04/09 Last Colonoscopy: 2007Hunter Reno MD 06/10/2018 10:52 AM SignedHow to Prepare for Your Colonoscopy Using Golytely, Nulytely, Trilyte or ColytePreparationswith Conscious SedationIMPORTANT - Read These Instructions at Least 2 Weeks Before your ColonoscopyKey Instructions:? Your bowel must be empty so that your doctor can clearly view your colon.Follow all of the instructions in this handout EXACTLY as they are written.If you do NOT follow the directions for when to start drinking the bowelpreparation, your colonoscopy WILL be cancelled.? Do NOT eat any solid food the ENTIRE day before your colonoscopy.? Buy your bowel preparation at least 5 days before your colonoscopy.? Do NOT mix the solution until the day before your colonoscopy.Designated Bus Cleaner on the Day of Your ExamA responsible family member or friend MUST come with you to your colonoscopyand REMAIN in the endoscopy area until you are discharged. You are NOT ALLOWEDto drive, take a taxi or bus, or leave the Endoscopy Center ALONE. If you donot have a responsible local company tanker driver (family member or friend) with you to take youhome, you exam cannot be done with sedation and will be cancelled.MedicationsSome of the medications you take may need to be stopped or adjusted before yourcolonoscopy. You MUST call the doctor who ordered any of the followingmedicines at least 2 weeks before your colonoscopy.? Blood thinners - such as Coumadin (warfarin), Plavix (clopidogrel), Ticlid(ticlopidine hydrochloride), Agrylin (anagrelide), Xarelto (Rivaroxaban),Pradaxa (Dabigatran), Eliquis (Apixaban), and Effient (Prasugrel).? Insulin or diabetes pills. Please call the doctor that monitors your glucoselevels. Your insulin dosage may need to be adjusted due to the dietrestrictions required with this bowel preparation. (Please bring your diabetesmedicines with you on the day of your procedure.)If you take aspirin, take it and ALL other medications prescribed by yourdoctor. On the day of your colonoscopy, take your medications with a sip ofwater.Five (5) Days Before Your Colonoscopy? Do NOT take medicines that stop diarrhea - such as Imodium, Kaopectate, orPepto Bismol.? Do NOT take fiber supplements - such as Metamucil, Citrucel, or Perdiem.? Do NOT take products that contain iron - such as multi-vitamins (the labellists what is in the products).? Do NOT take Vitamin E.Buy the prescription bowel preparation solution at your local pharmacy [facility].Three (3) Days Before Your Colonoscopy? Do NOT eat high-fiber foods - such as popcorn, beans, seeds (flax, sunflower,quinoa), multigrain bread, nuts, salad/vegetables, or fresh and dried fruit.One (1) Day Before Your ColonoscopyOnly drink clear liquids the ENTIRE DAY before your colonoscopy. Do NOT eatany solid foods. Drink at least 8 ounces of clear liquids every hour afterwaking up. The clear liquids you can drink include:? Water, apple, or white grape juice; broth; coffee or tea (without milk orcreamer); clear carbonated beverages such as cari ethel or lemon-capitan grande soda;Gatorade or other sports drinks (not red); Rolo-Aid or other flavored drinks(not red).You may eat plain jello or other gelatins (not red) or popsicles (not red).Do NOT drink alcohol on the day before or the day of the procedure.When to Mix and Drink Your Bowel PrepFollow the instructions on the label. After mixing, place the solution in therefrigerator for a couple of hours before drinking. You may add the flavorpack that came with the bowel preparation. Do NOT add ice, sugar or anyflavorings to the solution.Morning Appointment (Before 12 noon)Step 1:? Start drinking the bowel preparation at 6 PM the evening before yourcolonoscopy. Drink an 8-oz glass of bowel preparation every 10 minutes for atotal of 8 glasses.? You may continue to drink clear liquids until bedtime.Step 2: The day of the colonoscopy (4 hours before your exam).? Drink an 8-oz glass of bowel preparation every 10 minutes for a total of 8glasses.? You may continue to drink clear liquids up to 2 hours before your exam.If you take aspirin, take it and ALL other prescribed medicines with a sip ofwater on the day of your colonoscopy.Afternoon Appointment (After 12 noon)? Start drinking the bowel preparation at 6 AM the day of your colonoscopy.Drink an 8-oz glass of bowel preparation every 10 minutes. You must finishdrinking the solution by 9 AM.? You may continue to drink clear liquids up to 2 hours before your exam.If you take aspirin, take it and ALL other prescribed medicines with a sip ofwater on the day of your colonoscopy.Lisa Reno MD 06/12/2018 7:52 AM SignedHISTORY AND PHYSICALNancy Bianca Pitts1955REFERRING PHYSICIAN: SelfCHIEF COMPLAINT: Consult (10yr repeat colonoscopy)HPI: The patient is a 63 year old female referred for endoscopy. Jerri notesno history of colon complaints.The patient notes no history of upper GI complaints.Jerri has undergone prior endoscopy. She had a normal colonoscopy 10 yearspreviously, on July 11, 2018. She returns for follow-up. Normal riskscreening endoscopy. She has no family history of colon cancerPAST MEDICAL HISTORYDiagnosis Date- Carpal tunnel syndrome left wrist- HTN (hypertension)- Osteoarthrosis, unspecified whether generalized or localized, other specifiedsites kneesPAST SURGICAL HISTORYProcedure Laterality Date- CARPAL TUNNEL 2012 left wrist surgery- CARPAL TUNNEL RIGHT WRIST 2007- COLONOSCOP W/ OR W/O [facility] SPEC 07/11/2008 Normal Colonoscopy- REMOVAL GALLBLADDER 1988 Cholecystectomy- REMOVAL OF TONSILS,<10 Y/O Tonsillectomy- TOTAL KNEE REPLACEMENT 03/29 Knee replacement, total-bilateralCurrent Outpatient Prescriptions:indapamide (LOZOL) 1.25 mg tablet Take 1.25 mg by mouth once daily.THERAPEUTIC MULTIVITAMIN TAB Take one(1) tablet daily.quinapril (ACCUPRIL) 10 mg tabletAMOXICILLIN, BULK, MISC as needed.No current facility-administered medications for this visit.ALLERGIES: Patient has no known allergies.PERSONAL HISTORY: Social History Marital status: Spouse name: mariely Years of education: Number of children: 1Occupational HistoryOccupation Employer 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 ELECTION part timeSocial History Main Topics Smoking status: Never Smoker Smokeless tobacco: Never Used Alcohol use: No Drug use: No Sexual activity: Yes Partners with: Male control/protection: VasectomyOther Topics ConcernMilitary Service NoBlood Transfusions NoCaffeine Concern NoOccupational Exposure NoHobby Hazards NoSleep Concern NoStress Concern NoWeight Concern NoSpecial Diet NoBack Care NoExercise NoBike Helmet NoSeat Belt NoSelf-Exams NoFAMILY HISTORY:FAMILY HISTORYProblem Relation Age of Onset- Alzheimer's Disease Mother at 90yrs of age- unknown father's history [OTHER] Other deceasedREVIEW OF SYMPTOMS: The review of systems data was entered by the nurse and reviewed by Ana Notes:Hunter Samuel LPN 06/10/2018 10:39 AM SignedREVIEW OF SYSTEMS: General: The patient denies fatigue, denies weight loss, denies weightgain, denies feeling hot, and denies feelings of cold. Eyes: The patient denies glaucoma, denies eye injury/surgery, wearsglasses or contacts. Ear/Nose/Throat: The patient denies allergies, denies hayfever, deniesear infections, and denies bloody noses. Cardiovascular: The patient denies chest pain, denies heart disease,NOTES high blood pressure,denies cardiac stent, denies prior heart attack,denies irregular heart beat, denies high cholesterol, denies poor circulation,denies heart failure, other cardiac issues, denies claudication, denies coldfeet, denies peripheral arterial stent. Respiratory: The patient denies tuberculosis, denies pneumonia, deniesfrequent cough, denies pulmonary embolism, denies shortness of breath, anddenies coughing up blood. Gastrointestinal: The patient denies difficulty swallowing, denies acidreflux, denies ulcers, denies vomiting, denies jaundice/hepatitis, NOTESgallbladder problems, denies black or tarry stools, NOTES hemorrhoids, deniesbleeding from rectum, denies diverticulitis, denies constipation, deniesdiarrhea, denies loss of stool control, and denies hernias. Kidney/Bladder: The patient denies kidney stones, denies urineinfections, and denies bloody urine. Skin: The patient denies a history of skin cancer, deniesbleeding/changing moles, and denies a history of skin rash. Neurologic: The patient denies a history of epilepsy/convulsions, deniesheadaches, denies head/spinal injuries, and denies stroke/TIA. Psychiatric: The patient denies psychiatric medications, deniesdepression, and denies voices, denies substance abuse. Endocrine: The patient denies thyroid disorders, denies diabetes, anddenies hormonal problems. Hematologic: The patient denies a history of bruising, denies bleeding,and denies anemia, denies blood clots. Infections: The patient NOTES a history of measles and mumps, deniesrheumatic fever, and denies sexually transmitted diseases. Musculoskeletal: The patient denies back pain/injury, denies backproblems, denies sciatica, NOTES knee/foot trouble, NOTES arthritis, or deniesgout.When was patient's last Mammogram screening? 04/09 Last Colonoscopy: 2007Manololouise Samuel CYRUSNPHYSICAL EXAMINATION:General: The patient is 63 year old female, well nourished, well hydrated inno acute distress. The patient is oriented to time, place, and person.VITALS: Blood pressure 134/86, pulse 72, height 154.9 cm (5' 1), weight 97.6kg (215 lb 3.2 oz), last menstrual period 11/19/2007. Body mass index is 40.66kg/m?.HEENT: Normal cephalic, ataumatic, pupils are equally round, sclera areanicteric, mucous membranes are moist, oropharynx is clear. Neck has nomasses, asymmetry or lymphadenopathy. Thyroid is unremarkable.Respiratory: Clear to auscultation and percussion. Normal respiratoryexcursion and pattern.Cardiac: Examination is regular rate and rhythm.Abdominal exam: Soft, nontender, with no palpable masses. Nohepatosplenomegaly. No palpable hernias.Rectal exam: exam deferredExtremities: no clubbing, cyanosis or edema. No adenopathy.Other:LABORATO RY VALUES: As NotedRADIOLOGIC STUDIES: As NotedAssessmentIMPRESSION : screening colonoscopyPLAN: I plan to perform lower endoscopy. We discussed the risks and benefitsof the planned endoscopy. I have informed the patient that complications canoccur including failure to complete the endoscopy and perforation. The patienthad the opportunity to ask questions concerning the planned endoscopy. Scotty has also explained the procedure to the patient in understandable termsand has given the patient printed material concerning the procedure. Thepatient freely consents to surgery.I plan to use magnesium citrate and Dulcolax for bowel preparation for endoscopyDiagnoses: (Z12.11) Special screening for malignant neoplasm of colon (primaryencounter diagnosis)Return to Clinic: The patient is instructed to follow-up with me after thetesting has been completed. Lisa Reno, MDReferring Provider: SELF [[id number]]Allergies As of Date: 06/10/2018(No Known Allergies)Date Reviewed: 06/10/2018Reviewed by: Lisa Reno - Fully AssessedReason for Visit: Consult [173] Cmt: 10yr repeat colonoscopyPrimary Visit Diagnosis:Special screening for malignant neoplasm of colon [Z12.11]Order(s):SURGICAL REQUEST - ELECTIVE [[id number]] Order #: [id number]: 1 [] peg 3350-Electrolytes (GOLYTELY) 236-22.74-6.74 -5.86 gram suspensionTake 4,000 mL by mouth one time only for 1 dose. Refer to printed prep instructions from your doctor.Disp: 1 BottleRfl: 0 LUDIN PT ED DIGESTIVE DISEASES [[id number]] Order #: [id number]. #:[id number] 49-CCQty: 1 COLONOSCOPY SCRN NOT HIGH RISK [[id number]] Order #: [id number] FUTUREPrescriptions as of 06/10/2018 Sig: INDAPAMIDE 1.25 MG TABLET Take 1.25 mg by mouth once da* * THERAPEUTIC MULTIVITAMIN TABL* Take one(1) tablet daily. QUINAPRIL 10 MG TABLET PEG 3350-ELECTROLYTES 236 GRA* Take 4,000 mL by mouth one ti* AMOXICILLIN (BULK) MISC as needed.Medication notes this encounter AMOXICILLIN (BULK) MISC >> Hunter Samuel LPN 06/10/2018 10:05 AM >> HUNTER SAMUEL LPN [facility] Jun 10, 2018 10:05 AM Please D/cProblem List As Of Date 06/10/2018 Noted Resolved SCREENING MAL NEOP-COLON [Z12.11] INVALID FOR* Benign hypertension [I10] INVALID FOR* Postmenopausal atrophic vaginitis [N95.2] INVALID FOR* Colon cancer screening [Z12.11] INVALID FOR* More... Other instructions from your clinician: How to Prepare for Your Colonoscopy Using Golytely, Nulytely, Trilyte or Colyte Preparations with Conscious Sedation IMPORTANT - Read These Instructions at Least 2 Weeks Before your Colonoscopy Butt Instructions: ? Your bowel must be empty so that your doctor can clearly view your colon. Follow all of the instructions in this handout EXACTLY as they are written. If you do NOT follow the directions for when to start drinking the bowel preparation, your colonoscopy WILL be cancelled. ? Do NOT eat any solid food the ENTIRE day before your colonoscopy. ? Buy your bowel preparation at least 5 days before your colonoscopy. ? Do NOT mix the solution until the day before your colonoscopy. Designated Bus Cleaner on the Day of Your Exam A responsible family member or friend MUST come with you to your colonoscopy and REMAIN in the endoscopy area until you are discharged. You are NOT ALLOWED to drive, take a taxi or bus, or leave the Endoscopy Center ALONE. If you do not have a responsible local company tanker driver (family member or friend) with you to take you home, you exam cannot be done with sedation and will be cancelled. Medications Some of the medications you take may need to be stopped or adjusted before your colonoscopy. You MUST call the doctor who ordered any of the following medicines at least 2 weeks before your colonoscopy. ? Blood thinners - such as Coumadin (warfarin), Plavix (clopidogrel), Ticlid (ticlopidine hydrochloride), Agrylin (anagrelide), Xarelto (Rivaroxaban), Pradaxa (Dabigatran), Eliquis (Apixaban), and Effient (Prasugrel). ? Insulin or diabetes pills. Please call the doctor that monitors your glucose levels. Your insulin dosage may need to be adjusted due to the diet restrictions required with this bowel preparation. (Please bring your diabetes medicines with you on the day of your procedure.) If you take aspirin, take it and ALL other medications prescribed by your doctor. On the day of your colonoscopy, take your medications with a sip of water. Five (5) Days Before Your Colonoscopy ? Do NOT take medicines that stop diarrhea - such as Imodium, Kaopectate, or Pepto Bismol. ? Do NOT take fiber supplements - such as Metamucil, Citrucel, or Perdiem. ? Do NOT take products that contain iron - such as multi-vitamins (the label lists what is in the products). ? Do NOT take Vitamin E. Buy the prescription bowel preparation solution at your local pharmacy or drugstore pharmacy. Three (3) Days Before Your Colonoscopy ? Do NOT eat high-fiber foods - such as popcorn, beans, seeds (flax, sunflower, quinoa), multigrain bread, nuts, salad/vegetables, or fresh and dried fruit. One (1) Day Before Your Colonoscopy Only drink clear liquids the ENTIRE DAY before your colonoscopy. Do NOT eat any solid foods. Drink at least 8 ounces of clear liquids every hour after waking up. The clear liquids you can drink include: ? Water, apple, or white grape juice; broth; coffee or tea (without milk or creamer); clear carbonated beverages such as cari ethel or lemon-capitan grande soda; Gatorade or other sports drinks (not red); Rolo-Aid or other flavored drinks (not red). You may eat plain jello or other gelatins (not red) or popsicles (not red). Do NOT drink alcohol on the day before or the day of the procedure. When to Mix and Drink Your Bowel Prep Follow the instructions on the label. After mixing, place the solution in the refrigerator for a couple of hours before drinking. You may add the flavor pack that came with the bowel preparation. Do NOT add ice, sugar or any flavorings to the solution. Morning Appointment (Before 12 noon) Step 1: ? Start drinking the bowel preparation at 6 PM the evening before your colonoscopy. Drink an 8-oz glass of bowel preparation every 10 minutes for a total of 8 glasses. ? You may continue to drink clear liquids until bedtime. Step 2: The day of the colonoscopy (4 hours before your exam). ? Drink an 8-oz glass of bowel preparation every 10 minutes for a total of 8 glasses. ? You may continue to drink clear liquids up to 2 hours before your exam. If you take aspirin, take it and ALL other prescribed medicines with a sip of water on the day of your colonoscopy. Afternoon Appointment (After 12 noon) ? Start drinking the bowel preparation at 6 AM the day of your colonoscopy. Drink an 8-oz glass of bowel preparation every 10 minutes. You must finish drinking the solution by 9 AM. ? You may continue to drink clear liquids up to 2 hours before your exam. If you take aspirin, take it and ALL other prescribed medicines with a sip of water on the day of your colonoscopy.Visit Notes:>> Hunter Samuel LPN Kari Jun 10, 2018 10:14 AM Status: SignedREVIEW OF SYSTEMS: General: The patient denies fatigue, denies weight loss, deniesweight gain, denies feeling hot, and denies feelings of cold. Eyes: The patient denies glaucoma, denies eye injury/surgery, wearsglasses or contacts. Ear/Nose/Throat: The patient denies allergies, denies hayfever,denies ear infections, and denies bloody noses. Cardiovascular: The patient denies chest pain, denies heart disease,NOTES high blood pressure,denies cardiac stent, denies prior heart attack,denies irregular heart beat, denies high cholesterol, denies poorcirculation, denies heart failure, other cardiac issues, deniesclaudication, denies cold feet, denies peripheral arterial stent. Respiratory: The patient denies tuberculosis, denies pneumonia,denies frequent cough, denies pulmonary embolism, denies shortness ofbreath, and denies coughing up blood. Gastrointestinal: The patient denies difficulty swallowing, deniesacid reflux, denies ulcers, denies vomiting, denies jaundice/hepatitis,NOTES gallbladder problems, denies black or tarry stools, NOTEShemorrhoids, denies bleeding from rectum, denies diverticulitis, deniesconstipation, denies diarrhea, denies loss of stool control, and denieshernias. Kidney/Bladder: The patient denies kidney stones, denies urineinfections, and denies bloody urine. Skin: The patient denies a history of skin cancer, deniesbleeding/changing moles, and denies a history of skin rash. Neurologic: The patient denies a history of epilepsy/convulsions,rachel es headaches, denies head/spinal injuries, and denies stroke/TIA. Psychiatric: The patient denies psychiatric medications, deniesdepression, and denies voices, denies substance abuse. Endocrine: The patient denies thyroid disorders, denies diabetes,and denies hormonal problems. Hematologic: The patient denies a history of bruising, deniesbleeding, and denies anemia, denies blood clots. Infections: The patient NOTES a history of measles and mumps, deniesrheumatic fever, and denies sexually transmitted diseases. Musculoskeletal: The patient denies back pain/injury, denies backproblems, denies sciatica, NOTES knee/foot trouble, NOTES arthritis, ordenies gout.When was patient's last Mammogram screening? 04/09 Last Colonoscopy: 2007Joseph Diana LPNPrescriptions ordered this encounter Disp Refills Start End PEG 3350-ELECTROLYTES 236 GRAM-22.74* 1 Doug* 0 06/10/2018 06/10/2018 Route: ORAL Sig: Take 4,000 mL by mouth one time only for 1 dose. Refer to printed prep instructions from your doctor.Classic SmartForms filed for the COLONOSCOPY episode:Case Surgical RequestEncounter Number: [id number] Status:Closed by LISA RENO MD on 06/12/18 Normal [facility] HOSPon 06-10-2018 Body weight Measured Patient:Jerri Pitts RMRN: Height:5' 1(1.549 m)Weight:No patient weight recorded within the last 30 days.Outpatient Medications as of 07/16/18:quinapril (ACCUPRIL) 10 mg tabletindapamide (LOZOL) 1.25 mg tabletTHERAPEUTIC MULTIVITAMIN TABAdmission/Clinic Administered Medications as of 07/16/18:lactated ringers infusionProblem List:Special screening for malignant neoplasms, colon [Z12.11]Benign hypertension [I10]Postmenopausal atrophic vaginitis [N95.2]Colon cancer screening [Z12.11]Obesity, Class III, BMI >= 40 [E66.01]Allergies:No Known AllergiesDate Verified:07/16/18Lab ValuesNo results within the last 30 days for the following basenames: K,HCTProgress Notes ([facility]):Hemant Caruso 06/17/2018 4:39 PM [id number] Colon ASC Hemant Caruso Normal [facility] Culture, urine Bacteria identified Cx Nom (U) Positive [facility] Work Phone: Vital Signs Date Time Vital Sign Value Performing Clinician Dennisi sergio 07-20-2025 09:09-0400 Body height 154.[address] Augusta Mcintosh MD Work Phone: [facility] 07-20-2025 09:09-0400 Body weight 89.[address] Augusta Mcintosh MD Work Phone: [facility] 05-31-2025 09:25-0400 Body height 154.[address] Augusta Mcintosh MD Work Phone: [facility] 05-31-2025 09:25-0400 Body weight 92.[address] Augusta Mcintosh MD Work Phone: [facility] 04-03-2025 11:01-0400 Body mass index (BMI) [Ratio] 40.1 kg/m2 Dr. Augusta Mcintosh MD Work Phone: 4(888)687-328269 [place] [address] 04-03-2025 11:01-0400 Body weight 96.[address] Augusta Mcintosh MD Work Phone: 1(661)067-443969 [place] [address] 04-03-2025 11:01-0400 Diastolic blood pressure 82 mm[Hg] Dr. Augusta Mcintosh MD Work Phone: 5(497)228-606764 [place] [address] 04-03-2025 11:01-0400 Systolic blood pressure 152 mm[Hg] Dr. Augusta Mcintosh MD Work Phone: 5(964)918-263164 [place] [address] 12-26-2024 15:08-0500 Body height 154.[address] Augusta Mcintosh MD Work Phone: 1(795)931-381964 [place] [address] 12-26-2024 15:08-0500 Body mass index (BMI) [Ratio] 39.5 kg/m2 Dr. Augusta Mcintosh MD Work Phone: 3(003)980-509364 [place] [address] 12-26-2024 15:08-0500 Body temperature 97.7 [degF] Dr. Augusta Mcintosh MD Work Phone: 0(382)922-935869 [place] [address] 12-26-2024 15:08-0500 Body weight 94.[address] Augusta Mcintosh MD Work Phone: 3(307)610-227369 [place] [address] 12-26-2024 15:08-0500 Diastolic blood pressure 78 mm[Hg] Dr. Augusta Mcintosh MD Work Phone: 4(079)437-125689 [address] 12-26-2024 15:08-0500 Heart rate 85 /min Dr. Augusta Mcintosh MD Work Phone: 3(665)801-001169 [place] [address] 12-26-2024 15:08-0500 SaO2% (BldA) [Mass fraction] 95 % Dr. Augusta Mcintosh MD Work Phone: 5(488)329-911869 [place] [address] 12-26-2024 15:08-0500 Systolic blood pressure 120 mm[Hg] Dr. Augusta Mcintosh MD Work Phone: [facility] 02-15-2024 08:43-0400 Body height 154.[address] Augusta Mcintosh Work Phone: [facility] 02-15-2024 08:42-0400 Body mass index (BMI) [Ratio] 40.1 kg/m2 Dr. Augusta Mcintosh Work Phone: [facility] 02-15-2024 08:42-0400 Body weight 96.[address] Augusta Mcintosh Work Phone: [facility] 02-15-2024 08:42-0400 Diastolic blood pressure 82 mm[Hg] Dr. Augusta Mcintosh Work Phone: [facility] 02-15-2024 08:42-0400 Systolic blood pressure 136 mm[Hg] Dr. Augusta Mcintosh Work Phone: [facility] 11-27-2022 11:25-0500 Body height 154.[address] Augusta Mcintosh Work Phone: [facility] 11-27-2022 11:25-0500 Body mass index (BMI) [Ratio] 38.2 kg/m2 Dr. Augusta Mcintosh Work Phone: [facility] 11-27-2022 11:25-0500 Diastolic blood pressure 87 mm[Hg] Dr. Augusta Mcintosh Work Phone: [facility] 11-27-2022 11:25-0500 Systolic blood pressure 148 mm[Hg] Dr. Augusta Mcintosh Work Phone: [facility] 11-27-2022 11:08-0500 Body weight 91.[address] Augusta Mcintosh Work Phone: [facility] 05-29-2022 11:00-0400 Body height 154.[address] Augusta Mcintosh Work Phone: [facility] Work Phone: 05-29-2022 11:00-0400 Body mass index (BMI) [Ratio] 37.8 kg/m2 Dr. Augusta Mcintosh Work Phone: [facility] Work Phone: 05-29-2022 11:00-0400 Body weight 90.[address] Augusta Mcintosh Work Phone: [facility] Work Phone: 05-29-2022 11:00-0400 Diastolic blood pressure 86 mm[Hg] Dr. Augusta Mcintosh Work Phone: [facility] Work Phone: 05-29-2022 11:00-0400 Systolic blood pressure 130 mm[Hg] Dr. Augusta Mcintosh Work Phone: [facility] Work Phone: 12-09-2021 12:58-0500 Body height 154.[address] Augusta Mcintosh Work Phone: [facility] Work Phone: 12-09-2021 12:58-0500 Body mass index (BMI) [Ratio] 41.6 kg/m2 Dr. Augusta Mcintosh Work Phone: [facility] Work Phone: 12-09-2021 12:58-0500 Body weight 99.[address] Augusta Mcintosh Work Phone: [facility] Work Phone: 12-09-2021 12:58-0500 Diastolic blood pressure 90 mm[Hg] Dr. Augusta Mcintosh Work Phone: [facility] Work Phone: 12-09-2021 12:58-0500 Systolic blood pressure 150 mm[Hg] Dr. Augusta Mcintosh Work Phone: [facility] Work Phone: Encounters Encounter Date Encounter Type Care Provider Facility Start: 10-05-2025 ambulatory Valerie Jennings NP Facility :[facility] Start: 07-20-2025 End: 07-23-2025 Discharged Recurring Valerie Jennings CONSULTING SOLUTION DIRECTOR-C -[employer] [employer] Work Phone: Start: 07-20-2025 End: 07-23-[address] Augusta Mcintosh MD Work Phone: -[facility] Start: 05-31-2025 End: 06-22-2025 Discharged Recurring Valerie Jennings CONSULTING SOLUTION DIRECTOR-C -[employer] Work Phone: Start: 05-31-2025 End: 06-22-[address] Augusta Mcintosh MD Work Phone: -Nutritional Services Start: 04-03-2025 Encounter for gynecological examination (general) (routine) without abnormal findings Danay Padron [facility] Start: 04-03-2025 End: 04-03-[address] Danay Padron MD -[facility] Work Phone: Start: 04-03-2025 End: 04-03-[address] Danay Padron MD [facility] Start: 04-03-2025 End: 04-03-2025 ambulatory Augusta Mcintosh Facility:[facility] Start: 03-24-2025 End: 03-24-[address] Augusta Mcintosh MD Work Phone: [facility] Work Phone: Start: 03-24-2025 End: 03-24-[address] Augusta Mcintosh MD -[facility] Work Phone: Start: 03-24-2025 End: 03-24-2025 ambulatory Augusta Mcintosh Facility:[facility] Start: 03-22-2025 End: 03-22-[address] Augusta Mcintosh MD Work Phone: [facility] Work Phone: Start: 03-22-2025 End: 03-22-[address] Dre Hi MD -[facility] Work Phone: Start: 03-22-2025 End: 03-22-2025 ambulatory Augusta Mcintosh Facility:[facility] Start: 01-31-2025 End: 01-31-[address] Augusta Mcintosh MD Work Phone: [facility] Work Phone: Start: 01-31-2025 End: 01-31-[address] Augusta Mcintosh MD -Radiology, [place] Work Phone: Start: 01-31-2025 End: 01-31-2025 ambulatory Augusta Mcintosh Facility:[facility] Start: 12-26-2024 End: 12-26-2024 Patient encounter procedure Marquis Anisha Mary CONSULTING SOLUTION DIRECTOR-C -[facility] Work Phone: Start: 12-26-2024 End: 12-26-2024 ambulatory Augusta Mcintosh Facility:[facility] Start: 09-29-2024 End: 09-29-2024 ambulatory Augusta Mcintosh Facility:[facility] Start: 08-18-2024 End: 08-18-2024 ambulatory Augusta Mcintosh Facility:[facility] Start: 03-22-2024 End: 03-22-[address] Augusta Mcintosh Work Phone: [facility] Work Phone: Start: 03-22-2024 End: 03-22-[address] Augusta Mcintosh Work Phone: [facility] Start: 02-15-2024 End: 02-15-[address] Augusta Mcintosh Work Phone: [facility] Work Phone: Start: 09-23-2023 End: 09-23-2023 ambulatory [facility] Work Phone: Start: 09-23-2023 End: 09-23-2023 Patient encounter procedure [facility] Start: 07-20-2023 End: 07-20-2023 Patient encounter procedure [facility] Work Phone: Start: 11-27-2022 End: 11-27-[address] Augusta Mcintosh Work Phone: [facility] Work Phone: Start: 11-27-2022 End: 11-27-[address] [facility] Start: 11-27-2022 End: 11-27-[address] Augusta Mcintosh Work Phone: [facility] Start: 06-18-2022 End: 06-18-[address] [facility] Start: 06-12-2022 End: 06-12-[address] Augusta Mcintosh Work Phone: [facility]patient Breast [facility] Start: 05-29-2022 End: 05-29-[address] [facility] Start: 05-29-2022 End: 05-29-[address] Augusta Mcintosh Work Phone: [facility] Start: 03-27-2022 End: 03-27-[address] Augusta Mcintosh Work Phone: [facility] Start: 01-14-2022 End: 01-14-[address] Augusta Mcintosh Work Phone: [facility] Start: 12-09-2021 End: 12-09-[address] Augusta Mcintosh Work Phone: [facility] Start: 07-16-2018 End: 07-16-2018 Patient encounter LISA RENO [facility] Start: 06-10-2018 End: 06-14-2018 Patient encounter LISA RENO [facility] Procedures Date Procedure Procedure Detail Performing Clinician Start: 03-24-2025 Urine microalbumin/creatinine ratio measurement Dr. Augusta Mcintosh MD Work Phone: Comment on above: Previous reported re sult: 79.8 mg/g CREEdited by: NATY on 05/12/25:0825 AMENDED REPORT 05/12/25824 MALB:CREAT previously reported as: 79.8 mg/g CRE Start: 03-24-2025 Vitamin D, 25-hydrox y measurement Dr. Augusta Mcintosh MD Work Phone: Comment on above: Vitamin D StatusDefi ciency: <20 ng/mL (50nmol/L)Insufficiency: 20-30 ng/mL (50-75 nmol/L)Sufficiency: 30-100 ng/mL (75-250 nmol/L)Toxicity: >100 ng/mL (>250 nmol/L) Start: 03-22-[address] Augusta lazar MD Work Phone: Start: 01-31-2025 X-ray of paranasal sinuses, three or more views Dr. Augusta Mcintosh MD Work Phone: Start: 07-20-2023 Screening mammography Start: 06-12-2022 Screening mammography Augustine Mcintosh Work Phone: Bacteria identified in Urine by Culture Dr. Augusta Mcintosh Work Phone: H/O: surgery H/O dilation and curettage Dr. Augusta Mcintosh Work Phone: Urine culture Dr. Augusta Mcintosh Work Phone: Plan of Treatment Date Care Activity Detail Author DXA Bone [Mass/Area] Bone density [facility] MG Breast - bilateral Screening [facility] Immunizations Immunization Date Immunization Notes Care Provider Fa santos 02-21-2021 Covid (Pfizer) Dr. Augusta lawrence Work Phone: [facility] 01-31-2021 Covid (Pfizer) Dr. Augusta lawrence Work Phone: [facility] 06-24-2017 tetanus toxoid, redu christiano diphtheria toxoid, and acellular pertussis vaccine, adsorbed Dr. Augusta Mcintosh Work Phone: [facility] Payers Date Payer Category Payer Self-pay [id number] 2024 Medicare [id number] Medicare [id number] Unknown [id number] Unknown [id number] 2.16.8 [id number] Unknown [id number] 2.16.8 [id number] Unknown [id number] 2.16.8 [id number] Unknown [id number] 2.16.8 [id number] Unknown [id number] 2.16.8 [id number] Unknown [id number] 2.16.8 [id number] Unknown [id number] 2.16.8 [id number] Unknown [id number] 2.16.8 [id number] Unknown [id number] 2.16.8 [id number] Unknown [id number] 2.16.8 [id number] Social History Date Type Detail Facility Start: 12-09-2021 End: 02-15-2024 Tobacco smoking status NHIS Unknown if ever smoked [facility] Start: 1955 Sex Assigned At Female [facility] Start: 02-15-2024 Tobacco smoking stat [facility] Never smoked tobacco (finding) [facility] Start: 02-10-2025 Sex Female (finding) [facility] Evaluation note 04-03-2025 Note Date & Type Note Facility 04-03-2025 Evaluation note Diagnosis Onset Date Resolution Encounter for routine gynecological examination noneactive April 03, 2025 10:54am [facility] Work Phone: Radiology Diagnostic study note 03-22-2025 Note Date & Type Note Facility 03-22-2025 Radiology Diagnostic study note [facility] Imaging Services [address] [place] [address] Sinus/Facial Bone MR#: [id number] Acct: [id number] Name: JERRI PITTS Rep #: [id number] : 1955 F 69 From: Beth Whitten MD PCP: Dr. Augutsa Mcintosh MD Status: REG CLI Study:Sinus/Facial Bone Date of Exam: Exam# [id number] Ordering Dr: Dre Hi MD PROCEDURE: SINUS/FACIAL BONE (CTSI), 03/22/2025 REASON FOR EXAM: SINISITIS TECHNIQUE: CT sinuses was performed without IV contrast. Multiplanar reformats were generated. RADIATION DOSE SUMMARY: CTDlvol: 33.06 mGy DLP: 784.26 mGycm One or more dose reduction techniques were used (e.g., Automated exposure control, adjustment of the mA and/or kV according to patient size, use of iterative reconstruction technique). COMPARISON: None FINDINGS: Operative changes: None. Paranasal sinuses: Trace mucosal thickening of 1 mm or less along the inferior LEFT maxillary sinus. Focal mild mucosal thickening along the posterosuperior LEFT maxillary sinus, up to roughly 5 mm. Trace mucosal thickening of roughly 1 mm along the anterior GBUW-mpsprmd-nqeb-RIGHT sphenoid sinuses. Trace mucosal thickeningof 1 mm along the LEFT frontal recess.. Outflow tracts: Patent. Anatomic variants: Bilateral maxillary accessory ostia. Rightward nasal septal deviation of roughly 3 mm. Trace supraorbital pneumatization on the LEFT. Slightly asymmetric olfactory fossa heights, RIGHT higher than LEFT. Other: Hyperostosis frontalis. Partially empty sella suspected, can be a normalvariant or may be seen in the setting of idiopathic intracranial hypertension amongst other etiologies. Cervical spinal degenerative changes are partially imaged. Intracranial atherosclerosis. CT/Sinus/Facial Bone IMPRESSION: 1. Trace to mild LEFT maxillary predominant paranasal sinus disease as above. No findings to suggest acute sinusitis. 2. Outflow tracts are patent. 3. Additional description as above. Reading Location: [id number] CC: Dr. Dre Hi MD; Dr. Augusta Mcintosh MD ~ [employer] Machine: Signed [facility] Radiology Diagnostic study note 01-31-2025 Note Date & Type Note Facility 01-31-2025 Radiology Diagnostic study note [facility] Imaging Services [address] [place] [address] Sinuses min 3 Views MR#: [id number] Acct: [id number] Name: JERRI PITTS Rep #: [id number] : 1955 F 69 From: Beth Rich MD PCP: Dr. Augusta Mcintosh MD Status: REG CLI Study:Sinuses min 3 Views Date of Exam: 01/31/25 Exam# [id number] Ordering Dr: Sushil Mcintosh MD PROCEDURE: SINUSES MIN 3 VIEWS REASON FOR EXAM: FLU-LIKE SYMPTOMS TECHNIQUE: 3 view(s) of the nasal bones. COMPARISON: None. FINDINGS: No visible nasal bone fracture or displacement. Visualized paranasal sinuses appear clear. RAD/Sinuses min 3 Views IMPRESSION: NO DISPLACED OR DEPRESSED NASAL BONE FRACTURE DEMONSTRATED. Reading Location[facility] CC: Dr. 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 [facility] Work Phone: Evaluation note Note Date & Type Note Facility Evaluation note No assessment information availa ble [facility] Work Phone: Evaluation note Note Date & Type Note Facility Evaluation note Diagnosis Onset Date Encounter for routine gyneco logical examination noneactive [facility] Work Phone: Reason for referral (narrative) Note Date & Type Note Facility Reason for referral (narrative) No reason for referral information available [facility] Work Phone: Summary Purpose Family History No Family History Records FoundNo Family History Records Found Advance Directives No Advanced Directives Records Found Advance Directive Response Recorded Date/ Time Living Will No November 19 10:56am Power of Heater Installer No November 19, 2021 10:56am Advance Directive Response Recorded Date/ Time Living Will No November 19 9:56am Power of Heater Installer No November 19, 2021 9:56am Advance Directive Response Recorded Date/ Time Living Will No November 19 10:56am Do you have a Healthcare Power of Heater Installer? 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) April 03, 2025 10:54 am CKD May 31, 2025 9:27a m CKD July 20, 2025 8: 59am Reason for Visit Admit Date Encounter for routine gynecological exam ination April 03, 2025 10:54am Chief Complaint D&C, IUD removal Reason for Visit Complex endometrial hyperplasia without atypia Postmenopausal bleeding Chief Complaint f/u EMB for hyperpla anjelica Reason for Visit Complex endometrial hyperplasia without atypia Postmenopausal bleeding Chief Complaint f/u EMB for hyperpla anjelica SCREENING Reason for Visit Complex endometrial hyperplasia without atypia Postmenopausal bleeding Chief Complaint 6 MO EMB hyperplasia /IUD removal Reason for Visit Complex endometrial hyperplasia without atypia Chief Complaint SCREENING Chief Complaint 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) Reason for Visit Encounter for routin e gynecological examination Chief Complaint Admit Date Cough December 26, 2024 2 :56pm XRAY OF SINUS January 31, 2025 12: 46pm Reason for Visit Admit Date URI (upper respiratory infection) Februa 2024 2:56pm Chief Complaint Admit Date Cough December 26, 2024 2 :56pm XRAY OF SINUS January 31, 2025 12: 46pm J32.8 Other chronic sinusitis February 7:41am Chief Complaint Admit Date J32.8 Other chronic sinusitis February 7:41am 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) April 03, 2025 10:54 am CKD May 31, 2025 9:27a m Additional Source Comments INFORMATION SOURCE (unrecogn ized section and content) DATE CREATED AUTHOR 07/18/2018 [facility] DATE CREATED AUTHOR AUTHOR'S ORGANIZ ATION 07/24/2025 [facility] Goals (unrecognized section and content) Goals may be documented in a n alternate sectionGoals may be documented in an alternate sectionGoals may be documented in an alternate sectionGoals may be documented in an alternate sectionGoals may be documented in an alternate sectionGoals may be documented in an alternate sectionGoals may be documented in an alternate sectionGoals may be documented in an alternate sectionGoals may be documented in an alternate sectionGoals may be documented in an alternate sectionGoals may be documented in an alternate sectionGoals may be documented in an alternate section Care Teams (unrecognized sec tion and content) Team Status: Active Member Role Status Dates Dr. Augusta Mcintosh MD Primary Care Provider Active Team Status: Inactive Member Role Status Dates Dr. Augusta Mcintosh MD Primary Care Provider Active Start: December 26, 2024 End: December 26, 2024 Dr. Augusta Mcintosh MD Referring Provider Active St art: December 26, 2024 End: December 26, 2024 Marquis Hernandez CONSULTING SOLUTION DIRECTOR, CONSULTING SOLUTION DIRECTOR-C Attending Provider Active S tart: December 26, 2024 End: December 26, 2024 Team Status: Inactive Member Role Status Dates Dr. Augusta Mcintosh MD Primary Care Provider Active Start: January 31, 2025 End: January 31, 2025 Dr. Augusta Mcintosh MD Attending Provider Active St art: January 31, 2025 End: January 31, 2025 Dr. Augusta Mcintosh MD Referring Provider Active St art: January 31, 2025 End: January 31, 2025 Team Status: Active Member Role Status Dates Dr. Augusta Mcintosh MD Primary Care Provider Active Start: March 22, 2025 Dr. Dre Hi MD Attending Provider Activ e Start: March 22, 2025 Dr. Dre Hi MD Referring Provider Activ e Start: March 22, 2025 Team Status: Inactive Member Role Status Dates Dr. Augusta Mcintosh MD Primary Care Provider Active Start: March 24, 2025 End: March 24, 2025 Dr. Augusta Mcintosh MD Attending Provider Active St art: March 24, 2025 End: March 24, 2025 Dr. Augusta Mcintosh MD Referring Provider Active St art: March 24, 2025 End: March 24, 2025 Team Status: Active Member Role Status Dates Dr. Augusta Mcintosh MD Family Provider Active Dr. Augusta Mcintosh MD Primary Care Provider Active Team Status: Inactive Member Role Status Dates Dr. Augusta Mcintosh MD Primary Care Provider, Referring P rovider Active Dr. Danay Padron MD Attending Provider Active Team Status: Inactive Member Role Status Dates Dr. Augusta Mcintosh MD Primary Care Provider Active Dr. Danay Padron MD Attending Provider, Referr ing Provider Active Team Status: Inactive Member Role Status Dates Dr. Augusta Mcintosh MD Primary Care Provider, Attending P rovider Active Team Status: Inactive Member Role Status Dates Dr. Augusta Mcintosh MD Primary Care Provider Active Start: March 22, 2025 End: March 22, 2025 Dr. Dre Hi MD Attending Provider Activ e Start: March 22, 2025 End: March 22, 2025 Dr. Dre Hi MD Referring Provider Activ e Start: March 22, 2025 End: March 22, 2025 Team Status: Active Member Role/Relationship Status Dates Dr. Augusta Mcintosh MD Primary Care Provider Active Team Status: Inactive Member Role/Relationship Status Dates Dr. Augusta Mcintosh MD Primary Care Provider Active Start: March 22, 2025 End: March 22, 2025 Dr. Dre Hi MD Attending Provider Activ e Start: March 22, 2025 End: March 22, 2025 Dr. Dre Hi MD Referring Provider Activ e Start: March 22, 2025 End: March 22, 2025 Team Status: Inactive Member Role/Relationship Status Dates Dr. Augusta Mcintosh MD Primary Care Provider Active Start: March 24, 2025 End: March 24, 2025 Dr. Augusta Mcintosh MD Attending Provider Active St art: March 24, 2025 End: March 24, 2025 Dr. Augusta Mcintosh MD Referring Provider Active St art: March 24, 2025 End: March 24, 2025 Team Status: Inactive Member Role/Relationship Status Dates Dr. Augusta Mcintosh MD Primary Care Provider Active Start: April 03, 2025 End: April 03, 2025 Dr. Augusta Mcintosh MD Referring Provider Active St art: April 03, 2025 End: April 03, 2025 Dr. Danay Padron MD Attending Provider Active Start: April 03, 2025 End: April 03, 2025 Team Status: Inactive Member Role/Relationship Status Dates Dr. Augusta Mcintosh MD Primary Care Provider Active Start: May 31, 2025 End: June 22, 2025 Valerie Jennings CONSULTING SOLUTION DIRECTOR, CONSULTING SOLUTION DIRECTOR-C Attending Provider Active S tart: May 31, 2025 End: June 22, 2025 Valerie Jennings CONSULTING SOLUTION DIRECTOR, CONSULTING SOLUTION DIRECTOR-C Referring Provider Active S tart: May 31, 2025 End: June 22, 2025 Team Status: Inactive Member Role/Relationship Status Dates Dr. Augusta Mcintosh MD Primary Care Provider Active Start: April 03, 2025 End: April 03, 2025 Dr. Augusta Mcintosh MD Referring Provider Active St art: April 03, 2025 End: April 03, 2025 Dr. Danay Padron MD Attending Provider Active Start: April 03, 2025 End: April 03, 2025 Team Status: Inactive Member Role/Relationship Status Dates Dr. Augusta Mcintosh MD Primary Care Provider Active Start: May 31, 2025 End: June 22, 2025 Valerie Jennings CONSULTING SOLUTION DIRECTOR, CONSULTING SOLUTION DIRECTOR-C Attending Provider Active S tart: May 31, 2025 End: June 22, 2025 Valerie Jennings CONSULTING SOLUTION DIRECTOR, CONSULTING SOLUTION DIRECTOR-C Referring Provider Active S tart: May 31, 2025 End: June 22, 2025 Team Status: Inactive Member Role/Relationship Status Dates Dr. Augusta Mcintosh MD Primary Care Provider Active Start: July 20, 2025 End: July 23, 2025 Valerie Jennings CONSULTING SOLUTION DIRECTOR, CONSULTING SOLUTION DIRECTOR-C Attending Provider Active S tart: July 20, 2025 End: July 23, 2025 Valerie Jennings CONSULTING SOLUTION DIRECTOR, CONSULTING SOLUTION DIRECTOR-C Referring Provider Active S tart: July 20, 2025 End: July 23, 2025 FOR RECORDS PERTAINING TO PATIENTS WHO ARE OR HAVE BEEN ENROLLED IN A CHEMICAL DEPENDENCY/SUBSTANCEABUSE PROGRAM, SOME INFORMATION MAY BE OMITTED. This clinical summary was aggregated from multiple sources. Caution should be exercised in using it in the provision of clinical care. This summary normalizes information from multiple sources, and as a consequence, information in this document may materially change the coding, format and clinical context of patient data. In addition, data may be omitted in some cases. CLINICAL DECISIONS SHOULD BE BASED ON THE PRIMARY CLINICAL RECORDS. [facility], [facility]. provides no warranty or guarantee of the accuracy or completeness of information in this document.
== END | disposition home or self-care (01) ==
LOC: OPBI 07:54
PROVIDERS: PCP Family Medicine; Referring Provider Obstetrics & Gynecology; Visit Provider Obstetrics & Gynecology
DX: Z12.31 Encounter for screening mammogram for malignant neoplasm of breast (principal)
CPT/HCPCS: 77063; 77067